=== PATIENT | female | born 1995 | race Caucasian/White ===

== ENCOUNTER 2016-07-25 09:27 | Emergency (ER) | payer OTHER ==
[2016-07-25] MEDS ORDERED: SODIUM CHLORIDE 0.9% 1,000 ML IV ONE (10:30)
[2016-07-25] MEDS ORDERED: ONDANSETRON 4 MG/2 ML VIAL IVP STA (10:30)
[2016-07-25] MEDS ORDERED: ACETAMINOPHEN TAB 325 MG TAB PO STA (10:31)
[2016-07-25 11:31] LABS: ALT 26 U/L (9-52); AST 15 U/L (14-36); Alkaline Phosphatase 89 U/L (38-126); Anion Gap 12 mmol/L; Basophils % (A) 0 %; Blood Urea Nitrogen 10 mg/dL (7-17); CH 25.9; CHCM 31.3; Calcium 10.4 mg/dL (8.4-10.2); Carbon Dioxide 25 mmol/L (22-30); Chloride 107 mmol/L (98-107); Eosinophils % (A) 0 %; Glucose 110 mg/dL (74-99); HCT 42.7 % (34.0-46.0); HDW 2.57; HGB 13.5 gm/dL (11.4-16.0); Hypochromasia Slight; Luc # (Auto) 0.07; Luc % (Auto) 1; Lymphocytes # (A) 1.1 k/uL (1.0-4.8); Lymphocytes % (A) 11 %; MCH 26.3 pg (25.0-35.0); MCHC 31.7 g/dL (31.0-37.0); MCV 82.9 fL (80.0-100.0); Mean Platelet Volume 7.3; Monocytes # (A) 0.4 k/uL (0-1.0); Monocytes % (A) 4 %; Neutrophils # (A) 8.3 k/uL (1.3-7.7); Neutrophils % (A) 84 %; Non-African American GFR(MDRD) >60 (>60 ml/min/1.73 sqM); Potassium 4.5 mmol/L (3.5-5.1); RBC 5.15 m/uL (3.80-5.40); RDW 13.9 % (11.5-15.5); Sodium 144 mmol/L (137-145); Total Bilirubin 0.5 mg/dL (0.2-1.3); Total Protein 7.7 g/dL (6.3-8.2); WBC 9.8 k/uL (4.0-11.0); WBC (Perox) 9.97
[2016-07-25] MEDS ORDERED: KETOROLAC 30 MG/ML 1 ML VIAL IVP STA (11:31)
[2016-07-25] MEDS ORDERED: MORPHINE SULFATE 4 MG/ML SYRINGE IVP STA (11:31)
[2016-07-25 11:41] LABS: Appearance,Urine Cloudy (Clear); Bacteria,Urine Rare /hpf; Bilirubin,Urine Negative (Negative); Calcium Oxalate Crystals,Urine Occasional /hpf; Glucose,Urine (UA) Negative (Negative); Ketones,Urine Trace (Negative); Leukocyte Esterase,Urine Trace (Negative); Mucus,Urine Many /hpf; Nitrite,Urine Negative (Negative); Particle Count 27566; Protein,Urine 1+ (Negative); Specific Gravity,Urine 1.034 (1.001-1.035); Squamous Epithelial Cell,Urine 34 /hpf (0-4); UA Billing (MACRO vs. MICRO) MICRO; WBC,Urine 9 /hpf (0-5)
--- NOTE | 2016-07-25 11:42 | ED ---
General Adult HPI - General Chief complaint: Abdominal Pain Stated complaint: ABD/BACK PAIN Source: patient Mode of arrival: ambulatory Limitations: no limitations - History of Present Illness Initial comments: 20-year-old female presenting for evaluation of diffuse abdominal pain. She states that it woke her up at 3:30 AM this morning and has associated nausea. She states her pain is achy and radiates throughout her entire abdomen with radiation into her back. 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 She denies any vomiting, dysuria, chest pain, dizziness/ lightheadedness, vaginal bleeding,headache, fever, chills. - Related Data Home Medications Medication Instructions Recorded Confirmed Calcium Carbonate [Tums] 500 mg PO DAILY PRN 07/25/16 07/25/16 Ibuprofen [Motrin] 600 mg PO Q6HR PRN 07/25/16 07/25/16 Previous Rx's Medication Instructions Recorded Moxifloxacin HCl 400 mg PO DAILY #14 tab 07/25/16 Allergies Allergy/AdvReac Type Severity Reaction Status Date / Time amoxicillin Allergy Unknown Verified 07/25/16 09:52 Review of Systems ROS Statement: Those systems with pertinent positive or pertinent negative responses have been documented in the HPI. ROS Other: All systems not noted in ROS Statement are negative. Constitutional: Denies: fever, chills, weakness, weight change Eyes: Denies: eye pain, eye discharge, vision change ENT: Denies: ear pain, throat pain, dental pain Respiratory: Denies: cough, dyspnea Cardiovascular: Denies: chest pain, palpitations Endocrine: Denies: fatigue, polydipsia, polyuria Gastrointestinal: Reports: abdominal pain, nausea. Denies: vomiting, diarrhea, constipation, hematemesis Genitourinary: Denies: urgency, dysuria, frequency, hematuria Musculoskeletal: Denies: back pain, arthralgia Skin: Denies: rash, lesions Neurological: Denies: headache, weakness Psychiatric: Denies: anxiety, depression Hematological/Lymphatic: Denies: easy bleeding, easy bruising Past Medical History Past Medical History: No Reported History History of Any Multi-Drug Resistant Organisms: None Reported Past Surgical History: No Surgical Hx Reported Past Psychological History: Depression Smoking Status: Current some day smoker Past Alcohol Use History: Occasional Past Drug Use History: None Reported General Exam Limitations: no limitations General appearance: alert, in no apparent distress Head exam: Present: atraumatic, normocephalic, normal inspection Eye exam: Present: normal appearance, PERRL, EOMI. Absent: scleral icterus, conjunctival injection, periorbital swelling ENT exam: Present: normal exam, mucous membranes moist Neck exam: Present: normal inspection. Absent: tenderness, meningismus, lymphadenopathy Respiratory exam: Present: normal lung sounds bilaterally. Absent: respiratory distress, wheezes, rales, rhonchi, stridor Cardiovascular Exam: Present: normal rhythm, bradycardia, normal heart sounds. Absent: systolic murmur, diastolic murmur, rubs, gallop, clicks GI/Abdominal exam: Present: soft, normal bowel sounds. Absent: distended, tenderness, guarding, rebound, rigid, diminished bowel sounds, hyperactive bowel sounds, hypoactive bowel sounds, mass Rectal exam: Present: deferred Extremities exam: Present: normal inspection, full ROM, normal capillary refill. Absent: tenderness, pedal edema, joint swelling, calf tenderness Back exam: Present: normal inspection Neurological exam: Present: alert, oriented X3, CN II-XII intact Psychiatric exam: Present: normal affect, normal mood Skin exam: Present: warm, dry, intact, normal color. Absent: rash Course Vital Signs 07/25/16 07/25/16 09:28 12:52 Temperature 97.5 F L 98.2 F Pulse Rate 52 L 60 Respiratory 17 16 Rate Blood Pressure 134/84 133/80 O2 Sat by Pulse 100 99 Oximetry Medical Decision Making - Medical Decision Making 20-year-old female presented for evaluation of diffuse abdominal pain that she states woke her up at 3:30 this morning there some associated nausea and she further states that there is a possibility that she could be . Upon entering the room the patient was laying on the bed with her hands behind her head relaxing stating that her pain was severe relenting. On physical examination her abdomen is soft without peritoneal signs of any guarding, rigidity, or rebound. There is no discoloration of the skin. Remainder of the physical examination is benign. Given concern for possible we'll obtain labs including a urine with qualitative test. We'll also provide IV fluids, Zofran, and pain control. Labs significant for a mild hypercalcemia which the patient was informed of and that she should follow up with her primary care physician concerning. Urine was contaminated with many squamous epithelial cells. She was reevaluated and had improvement in her symptoms. Due to the vaginal discharge she was offered a pelvic exam with gonorrhea and chlamydia cultures as well as wet mount. The patient stated she has never had a pelvic exam before and does not want one at this time. She was informed of the reasons for obtaining it and the possible complications including but not limited to pelvic inflammatory disease. She further stated that she would rather follow up as an outpatient. Given her vaginal discharge and refusal to obtain a pelvic exam will treat prophylactically for PID. She has an ALLERGY to amoxicillin and instead of providing Rocephin and azithromycin will prescribe moxifloxacin. The patient was discharged with instructions to follow-up with her primary care physician and given referral for Dr. Hayward. It was stressed that she must follow-up with either her primary care physician or Dr. Hayward within the next 24-48 hours for reevaluation and possible pelvic exam. She was further advised to return to this facility if her symptoms should worsen or persist. She acknowledged an understanding of this information and agreed with this plan of care. - Lab Data Result diagrams: 07/25/16 11:05 07/25/16 11:05 Lab Results 07/25/16 07/25/16 07/25/16 Range/Units 10:10 10:10 11:05 WBC 9.8 (4.0-11.0) k/uL RBC 5.15 (3.80-5.40) m/uL Hgb 13.5 (11.4-16.0) gm/dL Hct 42.7 (34.0-46.0) % MCV 82.9 (80.0-100.0) fL MCH 26.3 (25.0-35.0) pg MCHC 31.7 (31.0-37.0) g/dL RDW 13.9 (11.5-15.5) % Plt Count 277 (150-450) k/uL Neutrophils % 84 % Lymphocytes % 11 % Monocytes % 4 % Eosinophils % 0 % Basophils % 0 % Neutrophils # 8.3 H (1.3-7.7) k/uL Lymphocytes # 1.1 (1.0-4.8) k/uL Monocytes # 0.4 (0-1.0) k/uL Eosinophils # 0.0 (0-0.7) k/uL Basophils # 0.0 (0-0.2) k/uL Hypochromasia Slight Sodium (137-145) mmol/L Potassium (3.5-5.1) mmol/L Chloride (98-107) mmol/L Carbon Dioxide (22-30) mmol/L Anion Gap mmol/L BUN (7-17) mg/dL Creatinine (0.52-1.04) mg/dL Est GFR (MDRD) Af Amer (>60 ml/min/1.73 sqM) Est GFR (MDRD) Non-Af (>60 ml/min/1.73 sqM) Glucose (74-99) mg/dL Calcium (8.4-10.2) mg/dL Total Bilirubin (0.2-1.3) mg/dL AST (14-36) U/L ALT (9-52) U/L Alkaline Phosphatase (38-126) U/L Total Protein (6.3-8.2) g/dL Albumin (3.5-5.0) g/dL Lipase (23-300) U/L Urine Color Yellow Urine Appearance Cloudy H (Clear) Urine pH 6.0 (5.0-8.0) Ur Specific [place] 1.034 (1.001-1.035) Urine Protein 1+ H (Negative) Urine Glucose (UA) Negative (Negative) Urine Ketones Trace H (Negative) Urine Blood Negative (Negative) Urine Nitrite Negative (Negative) Urine Bilirubin Negative (Negative) Urine Urobilinogen 3.0 (<2.0) mg/dL Ur Leukocyte Esterase Trace H (Negative) Urine WBC 9 H (0-5) /hpf Ur Squamous Epith Cells 34 H (0-4) /hpf Calcium Oxalate Crystal Occasional H (None) /hpf Urine Bacteria Rare H (None) /hpf Urine Mucus Many H (None) /hpf Urine HCG, Qual Not Detected (Not Detectd) 07/25/16 Range/Units 11:05 WBC (4.0-11.0) k/uL RBC (3.80-5.40) m/uL Hgb (11.4-16.0) gm/dL Hct (34.0-46.0) % MCV (80.0-100.0) fL MCH (25.0-35.0) pg MCHC (31.0-37.0) g/dL RDW (11.5-15.5) % Plt Count (150-450) k/uL Neutrophils % % Lymphocytes % % Monocytes % % Eosinophils % % Basophils % % Neutrophils # (1.3-7.7) k/uL Lymphocytes # (1.0-4.8) k/uL Monocytes # (0-1.0) k/uL Eosinophils # (0-0.7) k/uL Basophils # (0-0.2) k/uL Hypochromasia Sodium 144 (137-145) mmol/L Potassium 4.5 (3.5-5.1) mmol/L Chloride 107 (98-107) mmol/L Carbon Dioxide 25 (22-30) mmol/L Anion Gap 12 mmol/L BUN 10 (7-17) mg/dL Creatinine 0.70 (0.52-1.04) mg/dL Est GFR (MDRD) Af Amer >60 (>60 ml/min/1.73 sqM) Est GFR (MDRD) Non-Af >60 (>60 ml/min/1.73 sqM) Glucose 110 H (74-99) mg/dL Calcium 10.4 H (8.4-10.2) mg/dL Total Bilirubin 0.5 (0.2-1.3) mg/dL AST 15 (14-36) U/L ALT 26 (9-52) U/L Alkaline Phosphatase 89 (38-126) U/L Total Protein 7.7 (6.3-8.2) g/dL Albumin 4.7 (3.5-5.0) g/dL Lipase 36 (23-300) U/L Urine Color Urine Appearance (Clear) Urine pH (5.0-8.0) Ur Specific [place] (1.001-1.035) Urine Protein (Negative) Urine Glucose (UA) (Negative) Urine Ketones (Negative) Urine Blood (Negative) Urine Nitrite (Negative) Urine Bilirubin (Negative) Urine Urobilinogen (<2.0) mg/dL Ur Leukocyte Esterase (Negative) Urine WBC (0-5) /hpf Ur Squamous Epith Cells (0-4) /hpf Calcium Oxalate Crystal (None) /hpf Urine Bacteria (None) /hpf Urine Mucus (None) /hpf Urine HCG, Qual (Not Detectd) Disposition Clinical Impression: Abdominal pain, Nausea Disposition: HOME SELF-CARE Condition: Stable Instructions: Abdominal Pain (ED), Hypercalcemia (ED), Pelvic Inflammatory Disease (ED) Additional Instructions: Please use medication as discussed. Please follow up with family doctor if symptoms have not improved over the next two days. Please return to the emergency room if your symptoms increase or worsen or for any other concerns. Prescriptions: Moxifloxacin HCl 400 mg PO DAILY #14 tab Referrals: Carmelita Dinh MD [Primary Care Provider] - 1-2 days Candice Hayward DO [Doctor of Osteopathic Medicine] - 1-2 days Time of Disposition: 12:08
[2016-07-25 12:53] VITALS: BP 133/80; PULSE 60; RESP 16; TEMP 98.2
== END 2016-07-25 12:50 | disposition home or self-care (01) ==
LOC: EC 09:27
DX: R10.84 Generalized abdominal pain (principal); R11.0 Nausea; F17.200 Nicotine dependence, unspecified, uncomplicated; Z88.0 Allergy status to penicillin
CPT/HCPCS: 99284; 96374; 96375 ×2; 96361 ×2; 36415; 80053; 83690; 85025; 81001; 81025; J2270; J2405; J1885

== ENCOUNTER → 2017-02-13 | Outpatient (CLI) | payer OTHER ==
--- NOTE | 2017-02-13 17:33 | US ---
EXAMINATION TYPE: US OB >= 14 wk fetus DATE OF EXAM: 02/13/2017 COMPARISON: None CLINICAL HISTORY: Z34.01 Encounter of supervision of first TECHNIQUE: OBTA GESTATIONAL AGE / DATING Physician Established: (14 weeks/6 days) EDC: 08/08/2017 Dates by LMP: LMP unknown Dates by First Scan: No previous this is first scan Dates by Current Scan: (14 weeks/6 days) EDC: 08/08/2017 Beta HCG (if available): not available SURVEY IUP: Single PLACENTA: Anterior PREVIA: No Previa YUNG: 14.7 cm Normal CERVICAL LENGTH (transabdominal: norm > 3.0cm): 3.1 cm BIOMETRY PRESENTATION: Variable LIE: Longitudinal BPD: 2.8 cm 14 weeks / 6 days HC: 10.7 cm 15 weeks / 1 days AC: 9.6 cm 15 weeks / 5 days FL: 1.4 cm 14 weeks / 1 days ESTIMATED WEIGHT IN GRAMS: 110 grams ESTIMATED WEIGHT IN LBS/OZ: 0 lbs. 4 oz. WEIGHT PERCENTAGE BASED ON ESTABLISHED DATES: 43% HC/AC: 1.1 Normal FL/AC: 14.7 Normal HEART RATE: 171 bpm RHYTHM: Normal IMPRESSION: The ultrasound gestational age is 14 weeks 6 days. The JEREMY is 08/08/2017. I see no complicating proces s.
== END | disposition home or self-care (01) ==
LOC: RADUSWWP 16:32
PROVIDERS: ATTEND Obstetrics & Gynecology
DX: Z34.01 Encounter for supervision of normal first pregnancy, first trimester (principal); Z3A.14 14 weeks gestation of pregnancy
CPT/HCPCS: 76805

== ENCOUNTER 2017-05-29 15:31 | Emergency (ER) | payer OTHER ==
[2017-05-29 15:34] VITALS: BP 139/86; PULSE 97; RESP 18; TEMP 98.1
--- NOTE | 2017-05-29 16:11 | ED ---
General Adult HPI - General Chief complaint: Extremity Problem,Nontraumatic Stated complaint: hip pain Time Seen by Provider: 05/29/17 15:57 Source: patient, RN notes reviewed Mode of arrival: ambulatory Limitations: no limitations - History of Present Illness Initial comments: 21-year-old female presents emergency department with a chief complaint of right -sided sciatica type pain. She states . She states just Tylenol which did help. She was concerned it could be something more serious. She denies any abdominal pain any vaginal bleeding discharge this. She states that she has had no other symptoms with this. There is been no loss by bladder function any saddle anesthesia. She states that she complains since make the pain better.Patient denies any recent fever, chills, shortness of breath, chest pain , abdominal pain, nausea vomiting, numbness or tingling, dysuria or hematuria, constipation or diarrhea, headaches or visual changes, or any other current symptoms. - Related Data Home Medications Medication Instructions Recorded Confirmed Pnv,Calcium 72/Iron/Folic Acid 1 tab PO DAILY 02/24/17 03/26/17 [ Plus Tablet] Allergies Allergy/AdvReac Type Severity Reaction Status Date / Time amoxicillin Allergy Unknown Verified 05/29/17 15:33 Review of Systems ROS Statement: Those systems with pertinent positive or pertinent negative responses have been documented in the HPI. ROS Other: All systems not noted in ROS Statement are negative. Past Medical History Past Medical History: No Reported History History of Any Multi-Drug Resistant Organisms: None Reported Past Surgical History: No Surgical Hx Reported Past Psychological History: Depression Smoking Status: Former smoker Past Alcohol Use History: None Reported Past Drug Use History: None Reported General Exam Limitations: no limitations General appearance: alert, in no apparent distress ENT exam: Present: normal exam, mucous membranes moist Neck exam: Present: normal inspection. Absent: tenderness, meningismus, lymphadenopathy Respiratory exam: Present: normal lung sounds bilaterally Cardiovascular Exam: Present: regular rate, normal rhythm, normal heart sounds. Absent: systolic murmur, diastolic murmur, rubs, gallop, clicks Back exam: Present: normal inspection, full ROM, tenderness (SI joint). Absent : paraspinal tenderness, vertebral tenderness, rash noted Neurological exam: Present: alert, oriented X3 Psychiatric exam: Present: normal affect, normal mood Skin exam: Present: warm, dry, intact, normal color. Absent: rash Course Vital Signs 05/29/17 15:31 Temperature 98.1 F Pulse Rate 97 Respiratory 18 Rate Blood Pressure 139/86 O2 Sat by Pulse 100 Oximetry Medical Decision Making - Medical Decision Making 21-year-old female presents for right-sided appears to be a sciatica type pain. the risk of the medication use. We did discuss half-way. We did discuss supportive.. We discussed return parameters and follow-up and all questions. Patient stated that she understood and she is given this plan. She will be discharged. Disposition Clinical Impression: Right sided sciatica Disposition: HOME SELF-CARE Condition: Stable Instructions: Sciatica (ED) Additional Instructions: Please use medication as discussed. Please follow up with family doctor if symptoms have not improved over the next two days. Please return to the emergency room if your symptoms increase or worsen or for any other concerns. please follow up with your OB as discussed. Referrals: Carmelita Dinh MD [Primary Care Provider] - 1-2 days Time of Disposition: 16:10
== END 2017-05-29 16:15 | disposition home or self-care (01) ==
LOC: EC 15:31
DX: O99.89 Other specified diseases and conditions complicating pregnancy, childbirth and the puerperium (principal); M54.31 Sciatica, right side; Z3A.30 30 weeks gestation of pregnancy; Z87.891 Personal history of nicotine dependence; Z88.0 Allergy status to penicillin
CPT/HCPCS: 99284

== ENCOUNTER 2017-07-11 13:53 | Outpatient (CLI) | payer OTHER ==
[2017-07-11 14:55] VITALS: BP 131/84; PULSE 94; RESP 16; TEMP 97.8
--- NOTE | 2017-07-13 08:18 | P.MSEPDOC ---
Presenting Problems - Arrival Data Date of Arrival on Unit: 07/11/17 Time of Arrival on Unit: 13:55 Mode of Transport: Ambulatory - Complaint OB-Reason for Admission/Chief Complaint: Other Comment: abd pain X2 days Medical History - Information : 1 Para: 0 Term: 0 : 0 Abortions: Spontaneous or Elective: 0 Number of Living Children: 0 - Gestational Age Gestational Age by JEREMY (wks/days): 36 Weeks and 0 Days Review of Systems - Review of Systems Constitutional: No problems Breast: No problems ENT: No problems Cardiovascular: No problems Respiratory: No problems Gastrointestinal: No problems Genitourinary: No problems Musculoskeletal: No problems Neurological: No problems Skin: No problems Vital Signs - Temperature Temperature: 97.8 F Temperature Source: Oral - Pulse Right Brachial Pulse Rate: 94 Pulse Assessment Method: Automatic Cuff - Respirations Respiratory Rate: 16 Oxygen Delivery Method: Room Air - Blood Pressure Right Arm Blood Pressure: 131/84 Blood Pressure Mean: 99 Blood Pressure Source: Automatic Cuff Medical Screen Scoring (Pre) - Cervical Exam Dilation: 1-3 cm = 1 Membranes: Intact - Uterine Contractions Frequency: > 5 minutes apart = 1 - Maternal Vital Signs Maternal Temperature: N/A Maternal Blood Pressure: N/A Signs of Preeclampsia: N/A Maternal Respirations: N/A - Pain Assessment Pain Location and Character: Right, Abdomen Pain Scale Used: Numeric (1 - 10) Pain Intensity: 4 Pain Description: *Acute Pain Frequency: Occasional Pain Duration: 2 Pain Duration Units: Days Pain Behavior: None Exhibited - Maternal Trauma Maternal Trauma: N/A - Assessment Baseline FHR: 145 Heart Rate - NICHD Category: Category I (Normal) = 0 - Total Score Total Score (Pre): 2 - Level of Risk Level of Risk: Low (0-5) Physician Notification (Pre) - Physician Notified Physician Notified Date: 07/11/17 Physician Notified Time: 14:32 Physician/Practitioner Notifed:: paul Spoke With: paul New Order Received: Yes - Notification Comment Comment: reported pt visit, abd pain, fht, contractions, vag exam, pt is pt of dr horner and has appointment tomorrow. would like pt orally hydrated, recheck cervix in one hour and discharge home if no change Disposition - Disposition OB Disposition: Discharge to home Discharge Date: 07/11/17 Discharge Time: 15:35 I agree with the RN Medical Screening Exam: Yes Risk & Benefit of care provided described in d/c instruction: Yes Diagnosis: FALSE LABOR BEFORE 37 COMPLETED WEEKS OF GEST, THIRD TRI
== END 2017-07-11 15:36 | disposition home or self-care (01) ==
LOC: FBPOP 13:53
PROVIDERS: ATTEND Obstetrics & Gynecology
DX: O47.03 False labor before 37 completed weeks of gestation, third trimester (principal); Z3A.36 36 weeks gestation of pregnancy
CPT/HCPCS: 59025; G0463; 99213

== ENCOUNTER → 2017-08-01 | Outpatient (CLI) | payer OTHER ==
--- NOTE | 2017-08-01 17:50 | US ---
EXAMINATION TYPE: US OB >= 14 wk fetus DATE OF EXAM: 08/01/2017 COMPARISON: Prior ultrasound February 24, 2017 and March 21, 2017 CLINICAL HISTORY: Z34.03 SUPERVISION OF FIRST NORMAL , growth TECHNIQUE: Transabdominal (TA) GESTATIONAL AGE / DATING Physician /Established: (39 weeks/0 days) EDC: 08/08/17 Dates by LMP: LMP unknown Dates by First Scan: (39 weeks/0 days) EDC: 08/08/2017 Dates by Current Scan: (38weeks/5 days) EDC: 08/10/2017 SURVEY IUP: Single PLACENTA: Anterior PREVIA: No Previa YUNG: 16.2 Normal CERVICAL LENGTH (transabdominal: norm > 3.0cm): 3.5m BIOMETRY PRESENTATION: Vertex LIE: Longitudinal BPD: 9.5m 38weeks / 5 days HC: 34.4 39weeks / 5 days AC: 36.1 40weeks / 1 days FL: 7.5m 38weeks / 3 days ESTIMATED WEIGHT IN GRAMS: 3808grams ESTIMATED WEIGHT IN LBS/OZ: 8 lbs. 6 oz. WEIGHT PERCENTAGE BASED ON ESTABLISHED DATES: 80 HC/AC: 0.9Normal FL/AC: 20.7 Normal HEART RATE: 158 bpm RHYTHM: Normal Single live intrauterine gestation is redemonstrated. Normal cephalad presentation to the fetus is se en currently. There is no ultrasound evidence for placenta previa. No suspicious cervical thinning is present. Calculated amniotic fluid index is within the normal range. biometry measurements are concordant and felt within normal limits. IMPRESSION: As above. Noted estimated weight 8 lbs. 6 oz. upper limits of normal based on estimated date of confinement.
== END | disposition home or self-care (01) ==
LOC: RADUSWWP 16:08
PROVIDERS: ATTEND Obstetrics & Gynecology
DX: Z34.03 Encounter for supervision of normal first pregnancy, third trimester (principal)
CPT/HCPCS: 76805

== ENCOUNTER 2019-03-16 01:01 | Emergency (ER) | payer OTHER ==
[2019-03-16 01:18] VITALS: TEMP 97.8
--- NOTE | 2019-03-16 01:40 | ED ---
Abdominal Pain HPI - General Chief Complaint: Abdominal Pain Stated Complaint: Abd Pain Time Seen by Provider: 03/16/19 01:14 Source: patient Mode of arrival: ambulatory Limitations: no limitations - History of Present Illness MD Complaint: abdominal pain Onset/Timin -: hour(s) Location: epigastric Radiation: none Migration to: no migration Severity: mild Quality: stabbing Consistency: colicky Improves With: nothing Worsens With: nothing Context: recent antibiotic use Associated Symptoms: diarrhea - Related Data LMP (females 10-50): 1 month Patient : No Home Medications Medication Instructions Recorded Confirmed Pnv,Calcium 72/Iron/Folic Acid 1 tab PO DAILY 02/24/17 03/26/17 [ Plus Tablet] Previous Rx's Medication Instructions Recorded Dicyclomine [Bentyl] 20 mg PO QID #15 tablet 03/16/19 Allergies Allergy/AdvReac Type Severity Reaction Status Date / Time amoxicillin Allergy Unknown Verified 05/29/17 15:33 Review of Systems ROS Statement: Those systems with pertinent positive or pertinent negative responses have been documented in the HPI. ROS Other: All systems not noted in ROS Statement are negative. Constitutional: Denies: fever, chills Respiratory: Denies: cough, dyspnea Cardiovascular: Denies: chest pain, palpitations, syncope Gastrointestinal: Reports: abdominal pain, diarrhea. Denies: nausea, vomiting, constipation, melena, hematochezia Genitourinary: Denies: dysuria, hematuria, abnormal menses Musculoskeletal: Denies: back pain Skin: Denies: rash Neurological: Denies: headache Past Medical History Past Medical History: No Reported History History of Any Multi-Drug Resistant Organisms: None Reported Past Surgical History: No Surgical Hx Reported Past Psychological History: Depression Smoking Status: Never smoker Past Drug Use History: Marijuana General Exam Limitations: no limitations General appearance: alert, in no apparent distress Head exam: Present: atraumatic, normocephalic Eye exam: Present: normal appearance. Absent: scleral icterus, conjunctival injection ENT exam: Present: normal oropharynx Neck exam: Present: normal inspection Respiratory exam: Present: normal lung sounds bilaterally. Absent: respiratory distress, wheezes, rales, rhonchi, stridor Cardiovascular Exam: Present: regular rate, normal rhythm, normal heart sounds. Absent: systolic murmur, diastolic murmur, rubs, gallop GI/Abdominal exam: Present: soft, normal bowel sounds. Absent: distended, tenderness, guarding, rebound, rigid, mass, pulsatile mass, hernia Extremities exam: Present: normal inspection, normal capillary refill Back exam: Present: normal inspection. Absent: CVA tenderness (R), CVA tenderness (L) Neurological exam: Present: alert Skin exam: Present: warm, dry, intact, normal color. Absent: rash Course Vital Signs 03/16/19 03/16/19 01:09 04:26 Temperature 97.8 F Pulse Rate 70 67 Respiratory 24 18 Rate Blood Pressure 130/101 141/92 O2 Sat by Pulse 98 98 Oximetry Medical Decision Making - Lab Data Result diagrams: 03/16/19 02:08 03/16/19 02:08 Lab Results 03/16/19 03/16/19 03/16/19 Range/Units 02:08 02:08 02:16 WBC 15.3 H (3.8-10.6) k/uL RBC 5.74 H (3.80-5.40) m/uL Hgb 13.2 (11.4-16.0) gm/dL Hct 42.7 (34.0-46.0) % MCV 74.3 L (80.0-100.0) fL MCH 23.0 L (25.0-35.0) pg MCHC 31.0 (31.0-37.0) g/dL RDW 15.4 (11.5-15.5) % Plt Count 297 (150-450) k/uL Neutrophils % 86 % Lymphocytes % 10 % Monocytes % 2 % Eosinophils % 1 % Basophils % 0 % Neutrophils # 13.1 H (1.3-7.7) k/uL Lymphocytes # 1.5 (1.0-4.8) k/uL Monocytes # 0.3 (0-1.0) k/uL Eosinophils # 0.1 (0-0.7) k/uL Basophils # 0.0 (0-0.2) k/uL Hypochromasia Moderate Microcytosis Slight Sodium 141 (137-145) mmol/L Potassium 4.9 (3.5-5.1) mmol/L Chloride 106 (98-107) mmol/L Carbon Dioxide 23 (22-30) mmol/L Anion Gap 12 mmol/L BUN 14 (7-17) mg/dL Creatinine 0.62 (0.52-1.04) mg/dL Est GFR (CKD-EPI)AfAm >90 (>60 ml/min/1.73 sqM) Est GFR (CKD-EPI)NonAf >90 (>60 ml/min/1.73 sqM) Glucose 117 H (74-99) mg/dL Calcium 10.6 H (8.4-10.2) mg/dL Total Bilirubin 0.5 (0.2-1.3) mg/dL AST 32 (14-36) U/L ALT 32 (9-52) U/L Alkaline Phosphatase 79 (38-126) U/L Total Protein 8.1 (6.3-8.2) g/dL Albumin 4.8 (3.5-5.0) g/dL Amylase 52 (30-110) U/L Lipase 31 (23-300) U/L Urine Color Light Yellow Urine Appearance Clear (Clear) Urine pH 8.0 (5.0-8.0) Ur Specific [place] 1.008 (1.001-1.035) Urine Protein Negative (Negative) Urine Glucose (UA) Negative (Negative) Urine Ketones Negative (Negative) Urine Blood Negative (Negative) Urine Nitrite Negative (Negative) Urine Bilirubin Negative (Negative) Urine Urobilinogen <2.0 (<2.0) mg/dL Ur Leukocyte Esterase Moderate H (Negative) Urine RBC 1 (0-5) /hpf Urine WBC 2 (0-5) /hpf Ur Squamous Epith Cells 7 H (0-4) /hpf Urine Mucus Rare H (None) /hpf Urine HCG, Qual (Not Detectd) C. difficile (EIA) Intrp (Negative) 03/16/19 03/16/19 Range/Units 02:16 04:20 WBC (3.8-10.6) k/uL RBC (3.80-5.40) m/uL Hgb (11.4-16.0) gm/dL Hct (34.0-46.0) % MCV (80.0-100.0) fL MCH (25.0-35.0) pg MCHC (31.0-37.0) g/dL RDW (11.5-15.5) % Plt Count (150-450) k/uL Neutrophils % % Lymphocytes % % Monocytes % % Eosinophils % % Basophils % % Neutrophils # (1.3-7.7) k/uL Lymphocytes # (1.0-4.8) k/uL Monocytes # (0-1.0) k/uL Eosinophils # (0-0.7) k/uL Basophils # (0-0.2) k/uL Hypochromasia Microcytosis Sodium (137-145) mmol/L Potassium (3.5-5.1) mmol/L Chloride (98-107) mmol/L Carbon Dioxide (22-30) mmol/L Anion Gap mmol/L BUN (7-17) mg/dL Creatinine (0.52-1.04) mg/dL Est GFR (CKD-EPI)AfAm (>60 ml/min/1.73 sqM) Est GFR (CKD-EPI)NonAf (>60 ml/min/1.73 sqM) Glucose (74-99) mg/dL Calcium (8.4-10.2) mg/dL Total Bilirubin (0.2-1.3) mg/dL AST (14-36) U/L ALT (9-52) U/L Alkaline Phosphatase (38-126) U/L Total Protein (6.3-8.2) g/dL Albumin (3.5-5.0) g/dL Amylase (30-110) U/L Lipase (23-300) U/L Urine Color Urine Appearance (Clear) Urine pH (5.0-8.0) Ur Specific [place] (1.001-1.035) Urine Protein (Negative) Urine Glucose (UA) (Negative) Urine Ketones (Negative) Urine Blood (Negative) Urine Nitrite (Negative) Urine Bilirubin (Negative) Urine Urobilinogen (<2.0) mg/dL Ur Leukocyte Esterase (Negative) Urine RBC (0-5) /hpf Urine WBC (0-5) /hpf Ur Squamous Epith Cells (0-4) /hpf Urine Mucus (None) /hpf Urine HCG, Qual Not Detected (Not Detectd) C. difficile (EIA) Intrp Negative (Negative) Disposition Clinical Impression: Diarrhea Disposition: HOME SELF-CARE Condition: Good Instructions (If sedation given, give patient instructions): Acute Diarrhea (ED) Prescriptions: Dicyclomine [Bentyl] 20 mg PO QID #15 tablet Is patient prescribed a controlled substance at d/c from ED?: No Referrals: Carmelita Dinh MD [Primary Care Provider] - 1-2 days
[2019-03-16 02:22] LABS: Basophils % (A) 0 %; Eosinophils # (A) 0.1 k/uL (0-0.7); Eosinophils % (A) 1 %; HCT 42.7 % (34.0-46.0); HGB 13.2 gm/dL (11.4-16.0); Hypochromasia Moderate; Lymphocytes # (A) 1.5 k/uL (1.0-4.8); Lymphocytes % (A) 10 %; MCV 74.3 fL (80.0-100.0); Microcytosis Slight; Monocytes # (A) 0.3 k/uL (0-1.0); Monocytes % (A) 2 %; Neutrophils # (A) 13.1 k/uL (1.3-7.7); Neutrophils % (A) 86 %; Platelet Count 297 k/uL (150-450); RBC 5.74 m/uL (3.80-5.40); RDW 15.4 % (11.5-15.5); WBC 15.3 k/uL (3.8-10.6)
[2019-03-16 02:33] LABS: African American GFR (CKD) >90 (>60 ml/min/1.73 sqM); Amylase 52 U/L (30-110); Anion Gap 12 mmol/L; Calcium 10.6 mg/dL (8.4-10.2); Carbon Dioxide 23 mmol/L (22-30); Chloride 106 mmol/L (98-107); Glucose 117 mg/dL (74-99); Non-African American GFR(CKD) >90 (>60 ml/min/1.73 sqM); Sodium 141 mmol/L (137-145); Total Bilirubin 0.5 mg/dL (0.2-1.3)
[2019-03-16 02:36] LABS: ALT 32 U/L (9-52); AST 32 U/L (14-36); Albumin 4.8 g/dL (3.5-5.0); Alkaline Phosphatase 79 U/L (38-126); Blood Urea Nitrogen 14 mg/dL (7-17); Potassium 4.9 mmol/L (3.5-5.1); Total Protein 8.1 g/dL (6.3-8.2)
[2019-03-16 02:37] LABS: Appearance,Urine Clear (Clear); Bilirubin,Urine Negative (Negative); Blood,Urine Negative (Negative); Color,Urine Light Yellow; Glucose,Urine (UA) Negative (Negative); Ketones,Urine Negative (Negative); Leukocyte Esterase,Urine Moderate (Negative); Mucus,Urine Rare /hpf; Nitrite,Urine Negative (Negative); Protein,Urine Negative (Negative); RBC,Urine 1 /hpf (0-5); Specific Gravity,Urine 1.008 (1.001-1.035); Squamous Epithelial Cell,Urine 7 /hpf (0-4); Urobilinogen,Urine <2.0 mg/dL (<2.0); WBC,Urine 2 /hpf (0-5)
--- NOTE | 2019-03-16 03:07 | XR ---
EXAMINATION TYPE: XR KUB DATE OF EXAM: 03/16/2019 COMPARISON: NONE HISTORY: Abdominal pain TECHNIQUE: 2 views FINDINGS: Bowel gas pattern is normal. There is no sign of intestinal obstruction or pneumoperitoneum . Fecal pattern is normal. There is no sign of a mass. IMPRESSION: Nonacute abdomen.
[2019-03-16 04:27] VITALS: RESP 18
[2019-03-16] MEDS ORDERED: DICYCLOMINE 20 MG TAB PO STA (04:54)
[2019-03-16] MEDS ORDERED: MAG HYDROX/AL HYDROX/SIMETH 30 ML, HYOSCYAMINE ELIXIR 10 ML, LIDOCAINE VISCOUS 2% 10 ML PO STA ×3 (05:56)
[2019-03-16 07:14] VITALS: BP 139/89; PULSE 60
== END 2019-03-16 07:14 | disposition home or self-care (01) ==
LOC: EC 01:01
DX: R19.7 Diarrhea, unspecified (principal); R10.13 Epigastric pain; Z32.02 Encounter for pregnancy test, result negative; Z88.0 Allergy status to penicillin
CPT/HCPCS: 36415; 74018; 80053; 81001; 81025; 82150; 83690; 85025; 87324; 99284

== ENCOUNTER 2019-03-17 17:15 | Observation (INO) | payer OTHER ==
[2019-03-17] MEDS ORDERED: MORPHINE SULFATE 4 MG/ML SYRINGE IV STA (18:03)
[2019-03-17] MEDS ORDERED: SODIUM CHLORIDE 0.9% 1,000 ML IV STA (18:03)
[2019-03-17] MEDS ORDERED: KETOROLAC 30 MG/ML 1 ML VIAL IVP STA (18:03)
[2019-03-17] MEDS: ONDANSETRON 4 MG/2 ML VIAL IVP STA (18:54)
--- NOTE | 2019-03-17 19:07 | ED ---
Abdominal Pain HPI - General Source: patient, RN notes reviewed, old records reviewed Mode of arrival: ambulatory Limitations: no limitations <Luna Gregorio - Last Filed: 03/17/19 21:01> <Melissa Vera - Last Filed: 03/22/19 14:39> - General Chief Complaint: Abdominal Pain Stated Complaint: abd/back pain Time Seen by Provider: 03/17/19 17:56 - History of Present Illness Initial Comments: 23-year-old female presents today for evaluation for diffuse abdominal pain, fevers of the diarrhea, subjective fevers and chills and pain for the past 2 days. Reports the abdominal pain is periumbilical and radiate towards the right side. Patient states that she was seen in emergency department 2 days ago, and was sent home with Bentyl but reports no relief of her symptoms. She denies any of the symptoms including dysuria. He reports that she is on her menstrual cycle. Patient reports the pain radiates towards her back. (Luna Gregorio) - Related Data Home Medications Medication Instructions Recorded Confirmed Ibuprofen 400 mg PO Q6H PRN 03/17/19 03/17/19 Previous Rx's Medication Instructions Recorded Dicyclomine [Bentyl] 20 mg PO QID #15 tablet 03/16/19 Hydrocodone/Acetaminophen [[place] 1 tab PO Q6HR PRN 3 Days #12 tab 03/18/19 5-325] Allergies Allergy/AdvReac Type Severity Reaction Status Date / Time amoxicillin Allergy Intermediate Rash/Hives Verified 03/17/19 22:59 Review of Systems ROS Other: All systems not noted in ROS Statement are negative. <Luna Gregorio - Last Filed: 03/17/19 21:01> ROS Other: All systems not noted in ROS Statement are negative. <Melissa Vera - Last Filed: 03/22/19 14:39> ROS Statement: Those systems with pertinent positive or pertinent negative responses have been documented in the HPI. Past Medical History Past Medical History: No Reported History History of Any Multi-Drug Resistant Organisms: None Reported Past Surgical History: No Surgical Hx Reported Past Psychological History: Depression Smoking Status: Never smoker Past Drug Use History: Marijuana <Luna Gregorio - Last Filed: 03/17/19 21:01> General Exam Limitations: no limitations General appearance: alert, in no apparent distress Head exam: Present: atraumatic, normocephalic, normal inspection Eye exam: Present: normal appearance, PERRL, EOMI. Absent: scleral icterus, conjunctival injection, periorbital swelling ENT exam: Present: normal exam, mucous membranes moist Neck exam: Present: normal inspection. Absent: tenderness, meningismus, lymphadenopathy Respiratory exam: Present: normal lung sounds bilaterally. Absent: respiratory distress, wheezes, rales, rhonchi, stridor Cardiovascular Exam: Present: regular rate, normal rhythm, normal heart sounds. Absent: systolic murmur, diastolic murmur, rubs, gallop, clicks GI/Abdominal exam: Present: soft, tenderness (diffuse, worse right side), normal bowel sounds. Absent: distended, guarding, rebound, rigid Extremities exam: Present: normal inspection, full ROM, normal capillary refill. Absent: tenderness, pedal edema, joint swelling, calf tenderness Back exam: Present: normal inspection Neurological exam: Present: alert, oriented X3, CN II-XII intact <Luna Gregorio - Last Filed: 03/17/19 21:01> - General Exam Comments Initial Comments: 9-year-old female. Alert and oriented. Anxious. Moderate discomfort. (Luna Gregorio) Course Vital Signs 03/17/19 03/17/19 17:33 21:25 Temperature 98.2 F 97.8 F Pulse Rate 77 68 Respiratory 18 16 Rate Blood Pressure 138/95 141/97 O2 Sat by Pulse 98 98 Oximetry Medical Decision Making - Lab Data Result diagrams: 03/17/19 18:43 03/17/19 18:43 - Radiology Data Radiology results: report reviewed <Luna Gregorio - Last Filed: 03/17/19 21:01> - Lab Data Result diagrams: 03/19/19 06:54 03/18/19 22:44 <Melissa Vera - Last Filed: 03/22/19 14:39> - Medical Decision Making 23-year-old female presents today for abdominal pain for the past 3 days, complaining of some diarrhea, she reports it radiates towards the right side. She initially had some mid periumbilical tenderness and radiation towards the mid right abdomen. Lab work was reviewed. She does have elevated transaminases compared to yesterday. Does have evidence of leukocytosis. Blood cultures were completed. She has a lot of blood in her urine but she started her menstrual cycle today. CT abdomen and pelvis was performed. There is concern for dilated appendix. Suspicious for appendicitis. I discussed case with Dr. Vera who discussed case with Dr. Linder. Patient will be admitted and started on IV antibiotics. Remaining nothing by mouth at midnight. Given Rocephin and Flagyl this time. We will also order a gallbladder ultrasound due to the elevated transaminases today. (Luna Gregorio) I was available for consultation in the emergency department. The history and physical exam were done by the midlevel provider. I was consulted for this patients care. I reviewed the case with the midlevel provider and based on the ir presentation of the patient, I agree with the assessment, medical decision making and plan of care as documented. I evaluated the patient myself who agreed with the treatment plan. Chart was dictated using [employer] dictation software. Attempts were made to correct any dictation errors however some typographical errors may persist. (Melissa Vera) - Lab Data Lab Results 03/17/19 03/17/19 03/17/19 Range/Units 18:43 18:43 18:43 WBC 14.5 H (3.8-10.6) k/uL RBC 5.20 (3.80-5.40) m/uL Hgb 12.4 (11.4-16.0) gm/dL Hct 38.9 (34.0-46.0) % MCV 74.9 L (80.0-100.0) fL MCH 23.8 L (25.0-35.0) pg MCHC 31.7 (31.0-37.0) g/dL RDW 15.5 (11.5-15.5) % Plt Count 266 (150-450) k/uL Neutrophils % 82 % Lymphocytes % 11 % Monocytes % 4 % Eosinophils % 1 % Basophils % 0 % Neutrophils # 11.9 H (1.3-7.7) k/uL Lymphocytes # 1.6 (1.0-4.8) k/uL Monocytes # 0.6 (0-1.0) k/uL Eosinophils # 0.1 (0-0.7) k/uL Basophils # 0.0 (0-0.2) k/uL Hypochromasia Marked Microcytosis Slight APTT 24.8 (22.0-30.0) sec Sodium 142 (137-145) mmol/L Potassium 3.7 (3.5-5.1) mmol/L Chloride 103 (98-107) mmol/L Carbon Dioxide 27 (22-30) mmol/L Anion Gap 12 mmol/L BUN 17 (7-17) mg/dL Creatinine 0.78 (0.52-1.04) mg/dL Est GFR (CKD-EPI)AfAm >90 (>60 ml/min/1.73 sqM) Est GFR (CKD-EPI)NonAf >90 (>60 ml/min/1.73 sqM) Glucose 106 H (74-99) mg/dL Calcium 9.8 (8.4-10.2) mg/dL Total Bilirubin 0.4 (0.2-1.3) mg/dL AST 98 H (14-36) U/L ALT 107 H (9-52) U/L Alkaline Phosphatase 98 (38-126) U/L Total Protein 7.8 (6.3-8.2) g/dL Albumin 4.7 (3.5-5.0) g/dL Amylase 47 (30-110) U/L Lipase 59 (23-300) U/L Urine Color Urine Appearance (Clear) Urine pH (5.0-8.0) Ur Specific [place] (1.001-1.035) Urine Protein (Negative) Urine Glucose (UA) (Negative) Urine Ketones (Negative) Urine Blood (Negative) Urine Nitrite (Negative) Urine Bilirubin (Negative) Urine Urobilinogen (<2.0) mg/dL Ur Leukocyte Esterase (Negative) Urine RBC (0-5) /hpf Urine WBC (0-5) /hpf Ur Squamous Epith Cells (0-4) /hpf Urine Mucus (None) /hpf Urine HCG, Qual (Not Detectd) 03/17/19 03/17/19 Range/Units 19:45 19:45 WBC (3.8-10.6) k/uL RBC (3.80-5.40) m/uL Hgb (11.4-16.0) gm/dL Hct (34.0-46.0) % MCV (80.0-100.0) fL MCH (25.0-35.0) pg MCHC (31.0-37.0) g/dL RDW (11.5-15.5) % Plt Count (150-450) k/uL Neutrophils % % Lymphocytes % % Monocytes % % Eosinophils % % Basophils % % Neutrophils # (1.3-7.7) k/uL Lymphocytes # (1.0-4.8) k/uL Monocytes # (0-1.0) k/uL Eosinophils # (0-0.7) k/uL Basophils # (0-0.2) k/uL Hypochromasia Microcytosis APTT (22.0-30.0) sec Sodium (137-145) mmol/L Potassium (3.5-5.1) mmol/L Chloride (98-107) mmol/L Carbon Dioxide (22-30) mmol/L Anion Gap mmol/L BUN (7-17) mg/dL Creatinine (0.52-1.04) mg/dL Est GFR (CKD-EPI)AfAm (>60 ml/min/1.73 sqM) Est GFR (CKD-EPI)NonAf (>60 ml/min/1.73 sqM) Glucose (74-99) mg/dL Calcium (8.4-10.2) mg/dL Total Bilirubin (0.2-1.3) mg/dL AST (14-36) U/L ALT (9-52) U/L Alkaline Phosphatase (38-126) U/L Total Protein (6.3-8.2) g/dL Albumin (3.5-5.0) g/dL Amylase (30-110) U/L Lipase (23-300) U/L Urine Color Yellow Urine Appearance Clear (Clear) Urine pH 6.0 (5.0-8.0) Ur Specific [place] 1.035 (1.001-1.035) Urine Protein 1+ H (Negative) Urine Glucose (UA) Negative (Negative) Urine Ketones 1+ H (Negative) Urine Blood Moderate H (Negative) Urine Nitrite Negative (Negative) Urine Bilirubin Negative (Negative) Urine Urobilinogen 2.0 (<2.0) mg/dL Ur Leukocyte Esterase Negative (Negative) Urine RBC >182 H (0-5) /hpf Urine WBC 1 (0-5) /hpf Ur Squamous Epith Cells 1 (0-4) /hpf Urine Mucus Few H (None) /hpf Urine HCG, Qual Not Detected (Not Detectd) - Radiology Data Appendix is thickened. No surrounding inflammation. This is nevertheless suspicious for appendicitis. Read by Dr. Martínez. (Luna Gregorio) Disposition Is patient prescribed a controlled substance at d/c from ED?: No Time of Disposition: 21:10 <Luna Gregorio - Last Filed: 03/17/19 21:01> <Melissa Vera - Last Filed: 03/22/19 14:39> Clinical Impression: Appendicitis, Elevated transaminase level Disposition: ADMITTED IP TO THIS HOSP Condition: Stable
[2019-03-17 19:17] LABS: Basophils % (A) 0 %; Eosinophils # (A) 0.1 k/uL (0-0.7); Eosinophils % (A) 1 %; HCT 38.9 % (34.0-46.0); HGB 12.4 gm/dL (11.4-16.0); Hypochromasia Marked; Lymphocytes # (A) 1.6 k/uL (1.0-4.8); Lymphocytes % (A) 11 %; MCH 23.8 pg (25.0-35.0); MCHC 31.7 g/dL (31.0-37.0); MCV 74.9 fL (80.0-100.0); Mean Platelet Volume 6.8; Microcytosis Slight; Monocytes # (A) 0.6 k/uL (0-1.0); Monocytes % (A) 4 %; Neutrophils # (A) 11.9 k/uL (1.3-7.7); Neutrophils % (A) 82 %; Platelet Count 266 k/uL (150-450); RDW 15.5 % (11.5-15.5); WBC 14.5 k/uL (3.8-10.6)
[2019-03-17 19:27] LABS: ALT 107 U/L (9-52); AST 98 U/L (14-36); African American GFR (CKD) >90 (>60 ml/min/1.73 sqM); Albumin 4.7 g/dL (3.5-5.0); Alkaline Phosphatase 98 U/L (38-126); Amylase 47 U/L (30-110); Anion Gap 12 mmol/L; Blood Urea Nitrogen 17 mg/dL (7-17); Calcium 9.8 mg/dL (8.4-10.2); Carbon Dioxide 27 mmol/L (22-30); Chloride 103 mmol/L (98-107); Glucose 106 mg/dL (74-99); Non-African American GFR(CKD) >90 (>60 ml/min/1.73 sqM); Potassium 3.7 mmol/L (3.5-5.1); Sodium 142 mmol/L (137-145); Total Bilirubin 0.4 mg/dL (0.2-1.3); Total Protein 7.8 g/dL (6.3-8.2)
[2019-03-17 20:02] LABS: Appearance,Urine Clear (Clear); Bilirubin,Urine Negative (Negative); Blood,Urine Moderate (Negative); Color,Urine Yellow; Glucose,Urine (UA) Negative (Negative); Ketones,Urine 1+ (Negative); Leukocyte Esterase,Urine Negative (Negative); Mucus,Urine Few /hpf; Nitrite,Urine Negative (Negative); Protein,Urine 1+ (Negative); RBC,Urine >182 /hpf (0-5); Specific Gravity,Urine 1.035 (1.001-1.035); Squamous Epithelial Cell,Urine 1 /hpf (0-4); WBC,Urine 1 /hpf (0-5)
--- NOTE | 2019-03-17 20:44 | CT ---
EXAMINATION TYPE: CT abdomen pelvis w con DATE OF EXAM: 03/17/2019 COMPARISON: None HISTORY: right pelvic pain CT DLP: 1229.3 mGycm Automated exposure control for dose reduction was used. TECHNIQUE: Helical acquisition of images was performed from the lung bases through the pelvis. CONTRAST: Performed without Oral Contrast and with IV Contrast, patient injected with 100 mL of Isovue 300. FINDINGS: Lung bases are clear. There is no pleural effusion. Stomach is intact. Liver spleen pancreas gallblad joey appear normal. Bile ducts are not dilated. There is no adrenal mass. Kidneys show satisfactory co ntrast opacification. There is no hydronephrosis. Ureters are not dilated. There is no retroperitonea l adenopathy. Bladder is empty. Uterus is anteverted. There is no free fluid in the pelvis. There is no mesenteric edema. There is no ascites or free air. There is no sign of a bowel obstruction. The ap pendix is thickened and measures 10 mm. There is no surrounding inflammation seen however. The lumbar vertebra have normal spacing and alignment. Posterior elements are intact. Bony pelvis is intact. IMPRESSION: THE APPENDIX IS THICKENED. NO SURROUNDING INFLAMMATION. THIS IS NEVERTHELESS SUSPICIOUS FOR APPENDICI TIS..
[2019-03-17] MEDS ORDERED: PIPERACILLIN-TAZOBACTAM 3.375 GM in SODIUM CHLORIDE 0.9% 100 ML IVPB STA (21:00)
[2019-03-17] MEDS ORDERED: metroNIDAZOLE-NS PMX 500 MG in SALINE 1 100ML.BAG IVPB STA (21:04)
[2019-03-17] MEDS ORDERED: cefTRIAXone IN SWFI 1,000 MG/10 ML SYRINGE IVP STA (21:04)
[2019-03-17] MEDS ORDERED: ONDANSETRON 4 MG/2 ML VIAL IVP PRN (21:11)
[2019-03-17] MEDS ORDERED: NALOXONE 0.4 MG/ML 1 ML VIAL IV PRN (21:11)
[2019-03-17] MEDS ORDERED: KETOROLAC 30 MG/ML 1 ML VIAL IVP PRN (21:11)
[2019-03-17] MEDS ORDERED: ACETAMINOPHEN TAB 325 MG TAB PO PRN (21:11)
[2019-03-17] MEDS ORDERED: MORPHINE SULFATE 4 MG/ML SYRINGE IV PRN (21:11)
[2019-03-17] MEDS ORDERED: IBUPROFEN 400 MG TAB PO PRN (21:11)
[2019-03-17] MEDS ORDERED: cefTRIAXone IN SWFI 1,000 MG/10 ML SYRINGE IVP SCH (21:15)
[2019-03-17] MEDS: SODIUM CHLORIDE 0.9% 1,000 ML IV SCH (21:19)
--- NOTE | 2019-03-17 22:21 | US ---
EXAMINATION TYPE: US gallbladder DATE OF EXAM: 03/17/2019 COMPARISON: CT CLINICAL HISTORY: elevated transaminase. Elevated transaminase. Epigastric pain x 3 days. EXAM MEASUREMENTS: Liver Length: 16.9 cm Gallbladder Wall: 0.27 cm CBD: 0.40 cm Right Kidney: 12.4 x 5.2 x 4.8 cm Limited due to gas. Pancreas: Limited, partially obscured by overlying bowel gas. Liver: Appears to be wnl Gallbladder: Minimal internal echoes seen vs. artifact. Evidence for sonographic Pearl's sign: no CBD: appears to be wnl Right Kidney: Appears to measure upper limits of normal vs. minimally enlarged. No hydronephrosis or masses seen IMPRESSION: No gallstones or dilated ducts. No free fluid.
[2019-03-18] MEDS ORDERED: PIPERACILLIN-TAZOBACTAM 3.375 GM in SODIUM CHLORIDE 0.9% 100 ML IVPB SCH ×2
[2019-03-18] MEDS: SODIUM CHLORIDE 0.9% 1,000 ML IV SCH ×2 (06:56→13:38)
[2019-03-18] MEDS: PANTOPRAZOLE 40 MG/10 ML VIAL IV SCH (07:59)
--- NOTE | 2019-03-18 08:41 | P.GSHP ---
<Michaela Valentin A - Last Filed: 03/18/19 08:40> History of Present Illness H&P Date: 03/18/19 Chief Complaint: abdominal pain CHIEF COMPLAINT: Abdominal pain HISTORY OF PRESENT ILLNESS: 23-year-old female who presented to the emergency room with a chief complaint of abdominal pain. Patient reports her pain was mostly near the umbilicus and radiated to her right side. She reports nausea and states she had multiple episodes of emesis yesterday. PAST MEDICAL HISTORY: See list. PAST SURGICAL HISTORY: See list. SOCIAL HISTORY: No illicit drug use. REVIEW OF SYSTEMS: CONSTITUTIONAL: Denies fever or chills. HEENT: Denies blurred vision, vision changes, or eye pain. Denies hemoptysis CARDIOVASCULAR: Denies chest pain or pressure. RESPIRATORY: No shortness of breath. GASTROINTESTINAL: Refer to HPI for pertinent findings HEMATOLOGIC: Denies bleeding disorders. GENITOURINARY: Denies any blood in urine. SKIN: Denies pruitis. Denies rash. PHYSICAL EXAM: VITAL SIGNS: Reviewed. GENERAL: Well-developed in no acute distress. HEENT: No sclera icterus. Extraocular movements grossly intact. Moist buccal mucosa. Head is atraumatic, normocephalic. ABDOMEN: Soft. Nondistended. Tenderness with palpation near umbilicus and right lower quadrant. NEUROLOGIC: Alert and oriented. Cranial nerves II through XII grossly intact. LABORATORY DATA: WBC 14.5. Hemoglobin 12.4. Platelet count 266. Total bilirubin 0.4. AST 98. ALT 107. IMAGING: CT abdomen and pelvis: Thickened appendix. Findings likely representing acute appendicitis. Abdominal ultrasound: no gallstones or dilated ducts. No free fluid. ASSESSMENT: 1. Abdominal pain 2. Acute appendicitis 3. Mildly elevated liver enzymes PLAN: 1. NPO. Continue IV fluids. 2. Monitor WBC. Continue antibiotics 3. Patient to undergo laparoscopic appendectomy today with Dr. Linder Nurse practitioner note has been reviewed by physician. Signing provider agrees with the documented findings, assessment, and plan of care. Past Medical History Past Medical History: No Reported History History of Any Multi-Drug Resistant Organisms: None Reported Past Surgical History: No Surgical Hx Reported Additional Past Surgical History / Comment(s): wisdom tooth removal Past Anesthesia/Blood Transfusion Reactions: No Reported Reaction Past Psychological History: ADD/ADHD, Bipolar, Depression Additional Psychological History / Comment(s): has not been treated for bipolar disorder Smoking Status: Never smoker Past Alcohol Use History: None Reported Past Drug Use History: Marijuana Additional Drug Use History / Comment(s): current everyday marijuana user - Past Family History Father Additional Family Medical History / Comment(s): choly Medications and Allergies Home Medications Medication Instructions Recorded Confirmed Type Dicyclomine [Bentyl] 20 mg PO QID #15 tablet 03/16/19 03/17/19 Rx Ibuprofen 400 mg PO Q6H PRN 03/17/19 03/17/19 History Allergies Allergy/AdvReac Type Severity Reaction Status Date / Time amoxicillin Allergy Intermediate Rash/Hives Verified 03/17/19 22:59 Surgical - Exam Vital Signs Temp Pulse Resp BP Pulse Ox 98.2 F 77 18 138/95 98 03/17/19 17:33 03/17/19 17:33 03/17/19 17:33 03/17/19 17:33 03/17/19 17:33 Results - Labs 03/17/19 18:43 03/17/19 18:43 Abnormal Lab Results - Last 24 Hours (Table) 03/17/19 03/17/19 03/17/19 Range/Units 18:43 18:43 19:45 WBC 14.5 H (3.8-10.6) k/uL MCV 74.9 L (80.0-100.0) fL MCH 23.8 L (25.0-35.0) pg Neutrophils # 11.9 H (1.3-7.7) k/uL Glucose 106 H (74-99) mg/dL AST 98 H (14-36) U/L ALT 107 H (9-52) U/L Urine Protein 1+ H (Negative) Urine Ketones 1+ H (Negative) Urine Blood Moderate H (Negative) Urine RBC >182 H (0-5) /hpf Urine Mucus Few H (None) /hpf Diabetes panel 03/17/19 Range/Units 18:43 Sodium 142 (137-145) mmol/L Potassium 3.7 (3.5-5.1) mmol/L Chloride 103 (98-107) mmol/L Carbon Dioxide 27 (22-30) mmol/L BUN 17 (7-17) mg/dL Creatinine 0.78 (0.52-1.04) mg/dL Glucose 106 H (74-99) mg/dL Calcium 9.8 (8.4-10.2) mg/dL AST 98 H (14-36) U/L ALT 107 H (9-52) U/L Alkaline Phosphatase 98 (38-126) U/L Total Protein 7.8 (6.3-8.2) g/dL Albumin 4.7 (3.5-5.0) g/dL Calcium panel 03/17/19 Range/Units 18:43 Calcium 9.8 (8.4-10.2) mg/dL Albumin 4.7 (3.5-5.0) g/dL Pituitary panel 03/17/19 Range/Units 18:43 Sodium 142 (137-145) mmol/L Potassium 3.7 (3.5-5.1) mmol/L Chloride 103 (98-107) mmol/L Carbon Dioxide 27 (22-30) mmol/L BUN 17 (7-17) mg/dL Creatinine 0.78 (0.52-1.04) mg/dL Glucose 106 H (74-99) mg/dL Calcium 9.8 (8.4-10.2) mg/dL Adrenal panel 03/17/19 Range/Units 18:43 Sodium 142 (137-145) mmol/L Potassium 3.7 (3.5-5.1) mmol/L Chloride 103 (98-107) mmol/L Carbon Dioxide 27 (22-30) mmol/L BUN 17 (7-17) mg/dL Creatinine 0.78 (0.52-1.04) mg/dL Glucose 106 H (74-99) mg/dL Calcium 9.8 (8.4-10.2) mg/dL Total Bilirubin 0.4 (0.2-1.3) mg/dL AST 98 H (14-36) U/L ALT 107 H (9-52) U/L Alkaline Phosphatase 98 (38-126) U/L Total Protein 7.8 (6.3-8.2) g/dL Albumin 4.7 (3.5-5.0) g/dL <Milton Linder - Last Filed: 03/18/19 11:01> Surgical - Exam Vital Signs Temp Pulse Resp BP Pulse Ox 98.2 F 77 18 138/95 98 03/17/19 17:33 03/17/19 17:33 03/17/19 17:33 03/17/19 17:33 03/17/19 17:33 Results - Labs 03/17/19 18:43 03/17/19 18:43 Abnormal Lab Results - Last 24 Hours (Table) 03/17/19 03/17/19 03/17/19 Range/Units 18:43 18:43 19:45 WBC 14.5 H (3.8-10.6) k/uL MCV 74.9 L (80.0-100.0) fL MCH 23.8 L (25.0-35.0) pg Neutrophils # 11.9 H (1.3-7.7) k/uL Glucose 106 H (74-99) mg/dL AST 98 H (14-36) U/L ALT 107 H (9-52) U/L Urine Protein 1+ H (Negative) Urine Ketones 1+ H (Negative) Urine Blood Moderate H (Negative) Urine RBC >182 H (0-5) /hpf Urine Mucus Few H (None) /hpf Diabetes panel 03/17/19 Range/Units 18:43 Sodium 142 (137-145) mmol/L Potassium 3.7 (3.5-5.1) mmol/L Chloride 103 (98-107) mmol/L Carbon Dioxide 27 (22-30) mmol/L BUN 17 (7-17) mg/dL Creatinine 0.78 (0.52-1.04) mg/dL Glucose 106 H (74-99) mg/dL Calcium 9.8 (8.4-10.2) mg/dL AST 98 H (14-36) U/L ALT 107 H (9-52) U/L Alkaline Phosphatase 98 (38-126) U/L Total Protein 7.8 (6.3-8.2) g/dL Albumin 4.7 (3.5-5.0) g/dL Calcium panel 03/17/19 Range/Units 18:43 Calcium 9.8 (8.4-10.2) mg/dL Albumin 4.7 (3.5-5.0) g/dL Pituitary panel 03/17/19 Range/Units 18:43 Sodium 142 (137-145) mmol/L Potassium 3.7 (3.5-5.1) mmol/L Chloride 103 (98-107) mmol/L Carbon Dioxide 27 (22-30) mmol/L BUN 17 (7-17) mg/dL Creatinine 0.78 (0.52-1.04) mg/dL Glucose 106 H (74-99) mg/dL Calcium 9.8 (8.4-10.2) mg/dL Adrenal panel 03/17/19 Range/Units 18:43 Sodium 142 (137-145) mmol/L Potassium 3.7 (3.5-5.1) mmol/L Chloride 103 (98-107) mmol/L Carbon Dioxide 27 (22-30) mmol/L BUN 17 (7-17) mg/dL Creatinine 0.78 (0.52-1.04) mg/dL Glucose 106 H (74-99) mg/dL Calcium 9.8 (8.4-10.2) mg/dL Total Bilirubin 0.4 (0.2-1.3) mg/dL AST 98 H (14-36) U/L ALT 107 H (9-52) U/L Alkaline Phosphatase 98 (38-126) U/L Total Protein 7.8 (6.3-8.2) g/dL Albumin 4.7 (3.5-5.0) g/dL Assessment and Plan Plan: Patient undergo laparoscopic appendectomy today.
[2019-03-18] MEDS: metroNIDAZOLE-NS PMX 500 MG in SALINE 1 100ML.BAG IVPB SCH ×2 (08:51→17:21)
[2019-03-18] MEDS ORDERED: IV FLUID CONTINUATION 1,000 ML IV ONE (11:26)
[2019-03-18] MEDS ORDERED: DEXAMETHASONE SOD PHOSPHATE 10 MG/ML 1 ML VIAL IV ONE (12:03)
[2019-03-18] MEDS: ONDANSETRON 4 MG/2 ML VIAL IVP STA (12:03)
[2019-03-18] MEDS ORDERED: MIDAZOLAM 2 MG/2 ML VIAL IVP ONE (12:14)
[2019-03-18] MEDS ORDERED: PROPOFOL 10 MG/ML 20 ML VIAL IV ONE (12:38)
[2019-03-18] MEDS ORDERED: GLYCOPYRROLATE 0.2 MG/ML 2 ML VIAL ONE (12:38)
[2019-03-18] MEDS ORDERED: fentaNYL (PF) 50 MCG/ML 2 ML AMP ONE (12:38)
[2019-03-18] MEDS ORDERED: MIDAZOLAM 2 MG/2 ML VIAL ONE (12:38)
[2019-03-18] MEDS ORDERED: ROCURONIUM BROMIDE 10 MG/ML 10 ML VIAL IV ONE (12:38)
[2019-03-18] MEDS ORDERED: NEOSTIGMINE 1 MG/ML 10 ML VIAL ONE (12:38)
[2019-03-18] MEDS ORDERED: SUCCINYLCHOLINE CHLORIDE 100 MG/5 ML SYR IV ONE (12:38)
[2019-03-18] MEDS ORDERED: LIDOCAINE 1%-EPI 1:100,000 20 ML VIAL SQ ONE (13:06)
[2019-03-18] MEDS ORDERED: LACTATED RINGERS 1,000 ML IV ONE ×2 (13:19→13:22)
[2019-03-18] MEDS ORDERED: HYDROcodone/APAP 5-325MG 1 EACH TAB PO PRN (13:22)
[2019-03-18] MEDS ORDERED: NALOXONE 0.4 MG/ML 1 ML VIAL IV PRN (13:22)
--- NOTE | 2019-03-18 13:22 | P.OP ---
Date of Procedure: 03/18/19 Preoperative Diagnosis: Acute appendicitis Postoperative Diagnosis: Acute appendicitis Procedure(s) Performed: Laparoscopic appendectomy Anesthesia: LANDEN Surgeon: Milton Linder Pathology: other (Appendix) Condition: stable Disposition: PACU Description of Procedure: The patient's placed on the operating table in the supine position. The patient received general anesthesia. The abdomen was prepped and draped in the usual sterile fashion. The skin was anesthetized 1% local Xylocaine at the trocar sites. Using an 11 blade the skin was incised at the umbilicus. The umbilicus was grasped with a Radha clamp and then a Veress needle was placed into the peritoneal cavity. Position of the Veress needle was confirmed with positive drop test. After adequate insufflation a 5 mm trocar was placed into the peritoneal cavity. The abdomen was further insufflated. And then the laparoscope was placed in the peritoneal cavity. Next a 5 mm trocar was placed in the midline suprapubic position. And then a 10 mm trocar was placed in the midline epigastric position. The patient was rotated with the right side up and in Trendelenburg. The appendix was visualized. The appendix appeared to be inflamed. The appendix was grasped and then using the Harmonic scissors the mesoappendix was divided. A PDS Endoloop was then placed around the base of the appendix. And then the appendix was divided using Harmonic scissors. The appendix was placed into an Endo Catch and brought out through the 10 mm trocar site. The abdomen was irrigated. There is no bleeding seen. The trochars withdrawn. The skin was closed interrupted 3-0 Monocryl suture. Dermabond dressing was applied. Patient was sent to recovery room in stable condition.
[2019-03-18] MEDS ORDERED: diphenhydrAMINE 50 MG/ML 1 ML VIAL IVP ONE (13:35)
[2019-03-18] MEDS: KETOROLAC 30 MG/ML 1 ML VIAL IVP SCH ×2 (17:21→18:38)
[2019-03-18 23:05] LABS: ALT 66 U/L (9-52); AST 35 U/L (14-36); African American GFR (CKD) >90 (>60 ml/min/1.73 sqM); Alkaline Phosphatase 70 U/L (38-126); Anion Gap 11 mmol/L; Blood Urea Nitrogen 9 mg/dL (7-17); Calcium 9.4 mg/dL (8.4-10.2); Carbon Dioxide 22 mmol/L (22-30); Chloride 109 mmol/L (98-107); Glucose 121 mg/dL (74-99); Non-African American GFR(CKD) >90 (>60 ml/min/1.73 sqM); Potassium 4.3 mmol/L (3.5-5.1); Sodium 142 mmol/L (137-145); Total Bilirubin 0.4 mg/dL (0.2-1.3); Total Protein 6.5 g/dL (6.3-8.2)
[2019-03-19] MEDS: KETOROLAC 30 MG/ML 1 ML VIAL IVP SCH ×2 (00:25→05:59)
[2019-03-19] MEDS: metroNIDAZOLE-NS PMX 500 MG in SALINE 1 100ML.BAG IVPB SCH ×2 (00:26→09:13)
--- NOTE | 2019-03-19 05:25 | CONS ---
CONSULTATION REASON FOR CONSULTATION: Advice regarding ADD/ADHD and other medical issues requested by Dr. Linder. HISTORY OF PRESENT ILLNESS: This 23-year-old woman with a past medical history of ADD, ADHD, bipolar depression, being followed by Dr. Dinh in the outpatient setting was admitted with abdominal pain. The patient had abdominal pelvis CAT scan which showed thickened appendix and surrounding inflammation and the patient underwent laparoscopic appendectomy by Dr. Linder and the patient admitted for further evaluation and treatment. There is no history of fever, rigors. No history of headache, loss of consciousness, seizures, palpitations, hematochezia or melena at this time. PAST MEDICAL HISTORY: History of ADD/ADHD, bipolar depression. MEDICATIONS: Medications are home medications: 1. Ibuprofen 400 mg q.6 p.r.n. 2. Bentyl 20 mg p.o. q.i.d. 3. [place] 5 mg q.6 p.r.n. ALLERGIES: Allergies are AMOXICILLIN. FAMILY HISTORY: History of cholecystectomy, cholecystitis in the family. SOCIAL HISTORY: No history of smoking, history of THC. REVIEW OF SYSTEMS: ENT: No diminished hearing or diminished vision. CARDIOVASCULAR SYSTEM: No angina or palpitations. RESPIRATORY SYSTEM: No cough or hemoptysis. GI: No nausea. : No dysuria. NERVOUS SYSTEM: No numbness or weakness. ALLERGY/IMMUNOLOGY: No asthma or hayfever. MUSCULOSKELETAL: As mentioned earlier. HEMATOLOGY/ONCOLOGY: No history of anemia. ENDOCRINE: No history of diabetes or hypothyroidism. CONSTITUTIONAL: As mentioned earlier. DERMATOLOGY: Negative. RHEUMATOLOGY: Negative. PSYCHIATRY: As mentioned earlier. PHYSICAL EXAMINATION: The patient is alert and oriented x3. Pulse 76, blood pressure 135/80, respirations 16, temperature is normal, pulse ox 98% on room air. HEENT: Conjunctivae normal. Oral mucosa moist. Neck is no jugular venous distention. No carotid bruit. No lymph node enlargement. CARDIOVASCULAR: S1, S2 muffled. No S3, no S4. RESPIRATORY: Breath sounds diminished in the bases. No rhonchi. No crackles. ABDOMEN: Soft, status post surgery. LEGS: No edema, no swelling. NERVOUS SYSTEM: Higher function as mentioned earlier. Moves all 4 limbs. No focal deficits. LYMPHATICS: No lymphadenopathy of the neck, axillae or groin. SKIN: No ulcer, rash or bleeding. JOINTS: No active deforming arthropathy. LABS: WBC 14.5. AST is 98, ALT is 107. ASSESSMENT: 1. Acute appendicitis, status post laparoscopic appendectomy. 2. Increased AST, ALT of undetermined etiology. 3. Increased WBC. 4. History of attention deficit disorder, attention deficit hyperactivity disorder. 5. History of bipolar depression. 6. History of THC. RECOMMENDATIONS AND DISCUSSION: In this 23-year-old woman who presented with multiple medical issues, at this time I recommend to continue current medications, incentive spirometry, DVT prophylaxis. I would recommend repeat labs otherwise empiric antibiotics. We will follow the patient closely and the patient may be asked to follow up with primary physician, Dr. Dinh, in the outpatient setting. Thank you Dr. Linder for letting us participate in the care of this patient. MMODL / IJN: [id number] /
[2019-03-19 07:27] LABS: Anisocytosis Slight; Basophils % (A) 0 %; Eosinophils % (A) 0 %; HCT 33.2 % (34.0-46.0); HGB 10.5 gm/dL (11.4-16.0); Hypochromasia Slight; Lymphocytes # (A) 1.3 k/uL (1.0-4.8); Lymphocytes % (A) 12 %; MCH 23.2 pg (25.0-35.0); MCHC 31.5 g/dL (31.0-37.0); MCV 73.6 fL (80.0-100.0); Mean Platelet Volume 6.9; Microcytosis Moderate; Monocytes # (A) 0.6 k/uL (0-1.0); Monocytes % (A) 6 %; Neutrophils # (A) 8.3 k/uL (1.3-7.7); Neutrophils % (A) 80 %; Platelet Count 180 k/uL (150-450); RBC 4.51 m/uL (3.80-5.40); RDW 16.4 % (11.5-15.5); WBC 10.4 k/uL (3.8-10.6)
[2019-03-19] MEDS ORDERED: ENOXAPARIN 40 MG/0.4 ML SYRINGE SQ SCH (09:00)
[2019-03-19] MEDS: PANTOPRAZOLE 40 MG/10 ML VIAL IV SCH (09:12)
--- NOTE | 2019-03-19 09:43 | P.DS ---
<Michaela Valentin - Last Filed: 03/19/19 09:42> Providers Expected date of discharge: 03/19/19 Hospital Course: 23-year-old female who presented to the emergency room with a chief complaint of abdominal pain. Workup completed in the emergency room revealed evidence of appendicitis. Patient underwent laparoscopic appendectomy with Dr. Linder on March 18, 2019. Patient is doing well postoperatively without any immediate complications. She is tolerating diet without nausea or vomiting. Pain is controlled on oral medications. Vital signs have been stable. She is stable for discharge home today. Please see EMR for further hospital course details. Discharge Diagnosis: 1. Abdominal pain 2. Acute appendicitis 3. Mildly elevated liver enzymes Nurse practitioner note has been reviewed by physician. Signing provider agrees with the documented findings, assessment, and plan of care. Patient Condition at Discharge: Stable Plan - Discharge Summary Discharge Rx Participant: No New Discharge Prescriptions: New Hydrocodone/Acetaminophen [[place] 5-325] 1 tab PO Q6HR PRN 3 Days #12 tab PRN Reason: Pain No Action Dicyclomine [Bentyl] 20 mg PO QID #15 tablet Ibuprofen 400 mg PO Q6H PRN PRN Reason: Pain Discharge Medication List Dicyclomine [Bentyl] 20 mg PO QID #15 tablet 03/16/19 [Rx] Ibuprofen 400 mg PO Q6H PRN 03/17/19 [History] Hydrocodone/Acetaminophen [[place] 5-325] 1 tab PO Q6HR PRN 3 Days #12 tab 03/18/19 [Rx] Follow up Appointment(s)/Referral(s): Carmelita Dinh MD [Primary Care Provider] - 1-2 days Milton Linder MD [STAFF PHYSICIAN] - 1 Week Activity/Diet/Wound Care/Special Instructions: No driving while taking [place] No lifting over 10 pounds You may shower. No soaking or tub baths Very light activity until you are reevaluated at your follow up appointment with your surgeon Discharge Disposition: HOME SELF-CARE <Sherman Burns - Last Filed: 03/19/19 12:42> Providers Date of admission: 03/17/19 21:16 Attending physician: Milton Linder Consults: 03/18/19 13:22 Consult Physician Routine Consulting Provider: William Rachel Consult Reason/Comments: Medical management Do you want consulting provider notified?: Yes Primary care physician: Fabrizio Mae
[2019-03-19 09:44] VITALS: BP 136/78; PULSE 66; RESP 16; TEMP 98
== END 2019-03-19 11:10 | disposition home or self-care (01) ==
LOC: EC 17:15 → 6PED 21:16
PROVIDERS: ADMIT Surgery; ATTEND Surgery
DX: K35.80 Unspecified acute appendicitis (principal); R74.0 Nonspecific elevation of levels of transaminase and lactic acid dehydrogenase [LDH]; F90.9 Attention-deficit hyperactivity disorder, unspecified type; F32.9 Major depressive disorder, single episode, unspecified; Z88.0 Allergy status to penicillin; Z98.890 Other specified postprocedural states; Z97.2 Presence of dental prosthetic device (complete) (partial); Z79.899 Other long term (current) drug therapy; Z83.79 Family history of other diseases of the digestive system
CPT/HCPCS: 44970; 96375 ×2; 96376 ×2; 96361; 96374; 99285; 36415; 81025 ×2; 88304; 80053 ×2; 82150; 83605; 83690; 85025 ×2; 85730; 81001; 87040; 76705; 74177; G0378 ×3; J2250; J2270; J1200; J1100; J2710; J2405 ×2; J1650; J0696 ×2; J3010; J1885 ×3; J0330; J2704; C9113 ×2; Q9967

== ENCOUNTER 2020-09-28 08:07 | Emergency (ER) | payer OTHER ==
[2020-09-28 08:16] VITALS: BP 138/93; PULSE 60; RESP 18; TEMP 97.8
[2020-09-28] MEDS ORDERED: ONDANSETRON 4 MG/2 ML VIAL IVP STA (08:32)
[2020-09-28] MEDS ORDERED: FAMOTIDINE 20 MG/2 ML VIAL IV STA (08:32)
[2020-09-28] MEDS ORDERED: SODIUM CHLORIDE 0.9% 1,000 ML IV STA (08:32)
[2020-09-28 09:02] LABS: Anisocytosis Slight; Basophils % (A) 1 %; Eosinophils # (A) 0.1 k/uL (0-0.7); Eosinophils % (A) 2 %; HCT 39.5 % (34.0-46.0); Lymphocytes % (A) 27 %; MCH 25.7 pg (25.0-35.0); Mean Platelet Volume 7.4; Microcytosis Slight; Monocytes # (A) 0.3 k/uL (0-1.0); Monocytes % (A) 5 %; Neutrophils # (A) 4.6 k/uL (1.3-7.7); Neutrophils % (A) 64 %; Platelet Count 170 k/uL (150-450); RBC 5.06 m/uL (3.80-5.40); RDW 16.2 % (11.5-15.5); WBC 7.3 k/uL (3.8-10.6)
[2020-09-28 09:04] LABS: Appearance,Urine Cloudy (Clear); Bilirubin,Urine Negative (Negative); Blood,Urine Negative (Negative); Calcium Oxalate Crystals,Urine Rare /hpf; Color,Urine Yellow; Glucose,Urine (UA) Negative (Negative); Ketones,Urine Negative (Negative); Leukocyte Esterase,Urine Moderate (Negative); Mucus,Urine Moderate /hpf; Nitrite,Urine Negative (Negative); PH, Urine 5.5 (5.0-8.0); Protein,Urine Trace (Negative); RBC,Urine 1 /hpf (0-5); Specific Gravity,Urine 1.029 (1.001-1.035); Squamous Epithelial Cell,Urine 11 /hpf (0-4); WBC,Urine 2 /hpf (0-5)
[2020-09-28 09:12] LABS: ALT 70 U/L (4-34); AST 41 U/L (14-36); African American GFR (CKD) >90 (>60 ml/min/1.73 sqM); Albumin 4.4 g/dL (3.5-5.0); Alkaline Phosphatase 107 U/L (38-126); Amylase 57 U/L (30-110); Anion Gap 6 mmol/L; Blood Urea Nitrogen 10 mg/dL (7-17); Calcium 9.2 mg/dL (8.4-10.2); Carbon Dioxide 25 mmol/L (22-30); Chloride 109 mmol/L (98-107); Glucose 111 mg/dL (74-99); Lipase 44 U/L (23-300); Non-African American GFR(CKD) >90 (>60 ml/min/1.73 sqM); Potassium 4.2 mmol/L (3.5-5.1); Sodium 140 mmol/L (137-145); Total Bilirubin 0.8 mg/dL (0.2-1.3); Total Protein 7.2 g/dL (6.3-8.2)
--- NOTE | 2020-09-28 09:24 | XR ---
EXAMINATION TYPE: XR KUB DATE OF EXAM: 09/28/2020 Comparison: 03/16/2019 Clinical History: 25-year-old female abdominal pain Findings: No evidence for free intraperitoneal air. No dilated small bowel or air-fluid levels. Only mild stool within the right side of the colon. No suspicious calcifications seen. Impression: No evidence for free air or bowel obstruction. Mild stool in the right side of the abdomen.
[2020-09-28] MEDS ORDERED: KETOROLAC 15 MG/ML 1 ML VIAL IVP STA (09:42)
--- NOTE | 2020-09-28 09:43 | ED ---
General Adult HPI - General Chief complaint: Abdominal Pain Stated complaint: Abd/Back Pain Time Seen by Provider: 09/28/20 08:16 Source: patient Mode of arrival: ambulatory Limitations: no limitations - History of Present Illness Initial comments: 25-year-old female with a past medical history of appendectomy, marijuana use presents to the emergency room for a chief complaint of abdominal pain. Patient states that she has had abdominal pain for about a month and a half now. States it wraps around to her back as well. Patient states the pain is in the upper abdomen. States that she did see her primary care provider for this he gave her a medication for stomach ulcers. She reports she thought it was helping at first but last night the pain worsened again. States she is nauseous because of the pain. Patient denies vomiting. Patient denies noticing any worsening pain after eating. Patient denies fevers or chills. Patient has not been referred to a GI doctor as of yet.Patient has no other complaints at this time including shortness of breath, chest pain, vomiting, headache, or visual changes. - Related Data Home Medications Medication Instructions Recorded Confirmed Acetaminophen Tab [Tylenol Tab] 1,000 mg PO Q6HR PRN 09/28/20 09/28/20 Pantoprazole [Protonix] 40 mg PO DAILY 09/28/20 09/28/20 Allergies Allergy/AdvReac Type Severity Reaction Status Date / Time amoxicillin Allergy Intermediate Rash/Hives Verified 09/28/20 09:25 Review of Systems ROS Statement: Those systems with pertinent positive or pertinent negative responses have been documented in the HPI. ROS Other: All systems not noted in ROS Statement are negative. Past Medical History Past Medical History: No Reported History Additional Past Medical History / Comment(s): stomach ulcer History of Any Multi-Drug Resistant Organisms: None Reported Past Surgical History: Appendectomy Additional Past Surgical History / Comment(s): wisdom tooth removal Past Anesthesia/Blood Transfusion Reactions: No Reported Reaction Past Psychological History: ADD/ADHD, Bipolar, Depression Smoking Status: Never smoker Past Alcohol Use History: Occasional Past Drug Use History: Marijuana, Prescription Drug Abuse - Past Family History Father Additional Family Medical History / Comment(s): choly General Exam Limitations: no limitations General appearance: alert, in no apparent distress Head exam: Present: atraumatic, normocephalic, normal inspection Eye exam: Present: normal appearance, PERRL, EOMI. Absent: scleral icterus, conjunctival injection, periorbital swelling ENT exam: Present: normal exam, mucous membranes moist Neck exam: Present: normal inspection, full ROM. Absent: tenderness, meningismus, lymphadenopathy Respiratory exam: Present: normal lung sounds bilaterally. Absent: respiratory distress, wheezes, rales, rhonchi, stridor Cardiovascular Exam: Present: regular rate, normal rhythm, normal heart sounds. Absent: systolic murmur, diastolic murmur, rubs, gallop, clicks GI/Abdominal exam: Present: soft, tenderness (mild epigastric, RUQ tenderness), normal bowel sounds. Absent: distended, guarding, rebound, rigid Course Vital Signs 09/28/20 08:12 Temperature 97.8 F Pulse Rate 60 Respiratory 18 Rate Blood Pressure 138/93 O2 Sat by Pulse 100 Oximetry Medical Decision Making - Medical Decision Making Vitals are stable. Patient well-appearing. she is presenting for abdominal pain ongoing for about 6 weeks now. She has some mild epigastric tenderness. No lower abdominal tenderness. Patient has a history of appendectomy. CBC was obtained, white blood count that was normal. CMP shows minimal transaminitis. Urinalysis does not show any obvious evidence of infection. HCG is negative. X-ray of the abdomen showed no evidence of free air or bowel obstruction. Gallbladder ultrasound showed an overall normal homogeneous appearance of the liver. No gallstones or biliary ductal dilation. Patient was given pain med ication and did have significant improvement in symptoms. Patient will be discharged home to follow up with GI. She will return here for any worsening symptoms. - Lab Data Result diagrams: 09/28/20 08:50 09/28/20 08:50 Lab Results 09/28/20 09/28/20 09/28/20 Range/Units 08:50 08:50 08:50 WBC 7.3 (3.8-10.6) k/uL RBC 5.06 (3.80-5.40) m/uL Hgb 13.0 (11.4-16.0) gm/dL Hct 39.5 (34.0-46.0) % MCV 78.0 L (80.0-100.0) fL MCH 25.7 (25.0-35.0) pg MCHC 33.0 (31.0-37.0) g/dL RDW 16.2 H (11.5-15.5) % Plt Count 170 (150-450) k/uL MPV 7.4 Neutrophils % 64 % Lymphocytes % 27 % Monocytes % 5 % Eosinophils % 2 % Basophils % 1 % Neutrophils # 4.6 (1.3-7.7) k/uL Lymphocytes # 2.0 (1.0-4.8) k/uL Monocytes # 0.3 (0-1.0) k/uL Eosinophils # 0.1 (0-0.7) k/uL Basophils # 0.0 (0-0.2) k/uL Anisocytosis Slight Microcytosis Slight Sodium (137-145) mmol/L Potassium (3.5-5.1) mmol/L Chloride (98-107) mmol/L Carbon Dioxide (22-30) mmol/L Anion Gap mmol/L BUN (7-17) mg/dL Creatinine (0.52-1.04) mg/dL Est GFR (CKD-EPI)AfAm (>60 ml/min/1.73 sqM) Est GFR (CKD-EPI)NonAf (>60 ml/min/1.73 sqM) Glucose (74-99) mg/dL Calcium (8.4-10.2) mg/dL Total Bilirubin (0.2-1.3) mg/dL AST (14-36) U/L ALT (4-34) U/L Alkaline Phosphatase (38-126) U/L Total Protein (6.3-8.2) g/dL Albumin (3.5-5.0) g/dL Amylase (30-110) U/L Lipase (23-300) U/L Urine Color Yellow Urine Appearance Cloudy H (Clear) Urine pH 5.5 (5.0-8.0) Ur Specific [place] 1.029 (1.001-1.035) Urine Protein Trace H (Negative) Urine Glucose (UA) Negative (Negative) Urine Ketones Negative (Negative) Urine Blood Negative (Negative) Urine Nitrite Negative (Negative) Urine Bilirubin Negative (Negative) Urine Urobilinogen 2.0 (<2.0) mg/dL Ur Leukocyte Esterase Moderate H (Negative) Urine RBC 1 (0-5) /hpf Urine WBC 2 (0-5) /hpf Ur Squamous Epith Cells 11 H (0-4) /hpf Calcium Oxalate Crystal Rare H (None) /hpf Urine Mucus Moderate H (None) /hpf Urine HCG, Qual Not Detected (Not Detectd) 09/28/20 Range/Units 08:50 WBC (3.8-10.6) k/uL RBC (3.80-5.40) m/uL Hgb (11.4-16.0) gm/dL Hct (34.0-46.0) % MCV (80.0-100.0) fL MCH (25.0-35.0) pg MCHC (31.0-37.0) g/dL RDW (11.5-15.5) % Plt Count (150-450) k/uL MPV Neutrophils % % Lymphocytes % % Monocytes % % Eosinophils % % Basophils % % Neutrophils # (1.3-7.7) k/uL Lymphocytes # (1.0-4.8) k/uL Monocytes # (0-1.0) k/uL Eosinophils # (0-0.7) k/uL Basophils # (0-0.2) k/uL Anisocytosis Microcytosis Sodium 140 (137-145) mmol/L Potassium 4.2 (3.5-5.1) mmol/L Chloride 109 H (98-107) mmol/L Carbon Dioxide 25 (22-30) mmol/L Anion Gap 6 mmol/L BUN 10 (7-17) mg/dL Creatinine 0.78 (0.52-1.04) mg/dL Est GFR (CKD-EPI)AfAm >90 (>60 ml/min/1.73 sqM) Est GFR (CKD-EPI)NonAf >90 (>60 ml/min/1.73 sqM) Glucose 111 H (74-99) mg/dL Calcium 9.2 (8.4-10.2) mg/dL Total Bilirubin 0.8 (0.2-1.3) mg/dL AST 41 H (14-36) U/L ALT 70 H (4-34) U/L Alkaline Phosphatase 107 (38-126) U/L Total Protein 7.2 (6.3-8.2) g/dL Albumin 4.4 (3.5-5.0) g/dL Amylase 57 (30-110) U/L Lipase 44 (23-300) U/L Urine Color Urine Appearance (Clear) Urine pH (5.0-8.0) Ur Specific [place] (1.001-1.035) Urine Protein (Negative) Urine Glucose (UA) (Negative) Urine Ketones (Negative) Urine Blood (Negative) Urine Nitrite (Negative) Urine Bilirubin (Negative) Urine Urobilinogen (<2.0) mg/dL Ur Leukocyte Esterase (Negative) Urine RBC (0-5) /hpf Urine WBC (0-5) /hpf Ur Squamous Epith Cells (0-4) /hpf Calcium Oxalate Crystal (None) /hpf Urine Mucus (None) /hpf Urine HCG, Qual (Not Detectd) Disposition Clinical Impression: Abdominal pain Disposition: HOME SELF-CARE Condition: Good Instructions (If sedation given, give patient instructions): Abdominal Pain (ED) Additional Instructions: Please follow up with primary care as well as GI or surgery. if you have any worsening symptoms return to the emergency room Is patient prescribed a controlled substance at d/c from ED?: No Referrals: Carmelita Dinh MD [Primary Care Provider] - 1-2 days Cj Baez MD [STAFF PHYSICIAN] - 1-2 days Milton Linder MD [STAFF PHYSICIAN] - 1-2 days Time of Disposition: 10:09
--- NOTE | 2020-09-28 09:59 | US ---
EXAMINATION TYPE: US gallbladder DATE OF EXAM: 09/28/2020 COMPARISON: US 03/17/2019 CLINICAL HISTORY: 25-year-old female pain. Abdomen pain and N/V x 1 day TECHNIQUE: Multiple sonographic images of the right upper quadrant are obtained. FINDINGS: EXAM MEASUREMENTS: Liver Length: 15.3 cm Gallbladder Wall: 2.3 mm CBD: 3.7 mm Right Kidney: 10.8 x 4.8 x 4.9 cm Pancreas: Only a small portion of the pancreatic neck is seen. Remainder is obscured by bowel gas sh adowing. Liver: Overall homogeneous appearance. No focal lesion. Gallbladder: No abnormal distention, wall thickening, pericholecystic fluid, or shadowing calculi. Evidence for sonographic Pearl's sign: no CBD: visualized portions wnl, limited by overlying bowel gas Right Kidney: wnl IMPRESSION: Overall normal, homogeneous appearance to the liver. No gallstones or biliary ductal dilatation. Subo ptimal visualization of the pancreas.
== END 2020-09-28 10:25 | disposition home or self-care (01) ==
LOC: EC 08:07
DX: R10.11 Right upper quadrant pain (principal); R10.13 Epigastric pain; R11.0 Nausea; F31.9 Bipolar disorder, unspecified; F12.90 Cannabis use, unspecified, uncomplicated; Z90.89 Acquired absence of other organs
CPT/HCPCS: 36415; 80053; 82150; 83690; 85025; 81001; 81025; 74018; 76705; 99284; 96374; 96375 ×2; 96361; J2405; J1885

== ENCOUNTER 2022-09-05 21:47 | Emergency (ER) | payer OTHER ==
[2022-09-05 22:08] VITALS: BP 134/90; PULSE 96; RESP 18; TEMP 98.1
[2022-09-05] MEDS ORDERED: ACET/COD 300 MG/30 MG STARTER PACK 6 TAB BTL PO STA (22:15)
[2022-09-05] MEDS ORDERED: IBUPROFEN 600 MG STARTER PACK 4 TAB BTL PO STA (22:15)
[2022-09-05] MEDS ORDERED: CLINDAMYCIN 150 MG CAP PO STA (22:15)
--- NOTE | 2022-09-05 22:18 | ED ---
ENT HPI - General Chief complaint: Dental/Oral Stated complaint: DENTAL PAIN Time Seen by Provider: 09/05/22 22:14 Source: patient, RN notes reviewed Mode of arrival: ambulatory Limitations: no limitations - History of Present Illness Initial comments: This is a 27-year-old female who presents to the emergency department for dental pain. States that this woke her from her sleep around 7 AM. Reports pain in the molars on both sides of her lower jaw. States she grinds her teeth in her sleep and also chipped her tooth on something over Thanksgiving, contributing to this issue. She was told that she needs to have root canals and crowns placed. She was told by her dentist that she needs to have this done by an oral surgeon, and is still waiting to get a call back about an appointment. Denies any history of dental abscess. Denies any fevers, chills, sore throat, cough, dyspnea, chest pain, palpitations, abdominal pain, nausea, vomiting, diarrhea, back pain, or headaches. MD complaint: tooth pain - Related Data Home Medications Medication Instructions Recorded Confirmed Acetaminophen Tab [Tylenol Tab] 1,000 mg PO Q6HR PRN 09/28/20 09/28/20 Pantoprazole [Protonix] 40 mg PO DAILY 09/28/20 09/28/20 Previous Rx's Medication Instructions Recorded Clindamycin [Cleocin] 450 mg PO Q8H 10 Days #90 cap 09/05/22 Ibuprofen [Motrin] 600 mg PO Q6HR PRN #20 tab 09/05/22 Allergies Allergy/AdvReac Type Severity Reaction Status Date / Time amoxicillin Allergy Intermediate Rash/Hives Verified 09/05/22 22:05 Review of Systems ROS Statement: Those systems with pertinent positive or pertinent negative responses have been documented in the HPI. ROS Other: All systems not noted in ROS Statement are negative. Past Medical History Past Medical History: No Reported History Additional Past Medical History / Comment(s): stomach ulcer History of Any Multi-Drug Resistant Organisms: None Reported Past Surgical History: Appendectomy Additional Past Surgical History / Comment(s): wisdom tooth removal Past Anesthesia/Blood Transfusion Reactions: No Reported Reaction Past Psychological History: ADD/ADHD, Bipolar, Depression Smoking Status: Vaper Past Alcohol Use History: Occasional Past Drug Use History: Marijuana, Prescription Drug Abuse - Past Family History Father Additional Family Medical History / Comment(s): choly General Exam Limitations: no limitations General appearance: alert, in no apparent distress Head exam: Present: atraumatic, normocephalic, normal inspection ENT exam: Present: other (Teeth 19 and 30 both appear to be chipped. There is erythema and swelling to the surrounding gums. No palpable abscess.) Respiratory exam: Present: normal lung sounds bilaterally. Absent: respiratory distress, wheezes, rales, rhonchi, stridor Cardiovascular Exam: Present: regular rate, normal rhythm, normal heart sounds. Absent: systolic murmur, diastolic murmur, rubs, gallop, clicks Neurological exam: Present: alert, oriented X3, CN II-XII intact Psychiatric exam: Present: normal affect, normal mood Skin exam: Present: warm, dry, intact, normal color. Absent: rash Course Vital Signs 09/05/22 22:05 Temperature 98.1 F Pulse Rate 96 Respiratory 18 Rate Blood Pressure 134/90 O2 Sat by Pulse 98 Oximetry Medical Decision Making - Medical Decision Making This is a 27-year-old female who presents to the emergency department for dental pain. Was pt. sent in by a medical professional or institution? @ -No Did you speak to anyone other than the patient for history? @ -No Did you review nursing and triage notes? @ -Yes, and I agree, it is accurate with regards to the patient's symptoms. Were old charts reviewed? @ -No Differential Diagnosis? @ -Differential Dental Pain: Dental abscess, chipped tooth, dental carries, hieu's angina, trigeminal neuralgia, this is not meant to be an all-inclusive list. EKG interpreted by me (3pts min.)? @ -Not obtained X-rays interpreted by me (1pt min.)? @ -Not obtained CT interpreted by me (1pt min.)? @ -Not obtained U/S interpreted by me (1pt. min.)? @ -Not obtained What testing was considered but not performed? (CT, X-rays, U/S, labs)? Why? @ -None What meds were considered but not given? Why? @ -None Did you discuss the management of the patient with other professionals? @ -No Did you reconcile home meds? @ -No Was smoking cessation discussed for >3mins.? @ -No Was critical care preformed (if so, how long)? @ -No Were there social determinants of health that impacted care today? How? (Homelessness, low income, unemployed, alcoholism, drug addiction, transportation, low edu. Level, literacy, decrease access to med. care, detention, rehab)? @ -No Was there de-escalation of care discussed even if they declined? (Discuss DNR or withdrawal of care, Hospice)? @ -No What co-morbidities impacted this encounter? (DM, HTN, Smoking, COPD, CAD, Cancer, CVA, Hep., AIDS, mental health diagnosis, sleep apnea, morbid obesity)? @ -None Was patient admitted / discharged? @ -Discharged. Physical examination does not suggest a dental abscess, however there is erythema and swelling around the gums of the affected teeth which may represent an infection. Rx for clindamycin and ibuprofen provided with dosing instructions reviewed. Initial dose of clindamycin administered in the emergency department. Advised she take Tylenol as well for additional pain rel ief. Given that she was told by her dentist that she needs to see an oral surgeon, she was given information for follow-up with oral surgery as well. Undiagnosed new problem with uncertain prognosis? @ -None Drug Therapy requiring intensive monitoring for toxicity (Heparin, Nitro, Insulin, Cardizem)? @ -None Were any procedures done? @ -None Diagnosis/symptom? @ -Dental infection Acute, or Chronic, or Acute on Chronic? @ -Acute Uncomplicated (without systemic symptoms) or Complicated (systemic symptoms)? @ -Uncomplicated Side effects of treatment? @ -None Exacerbation, Progression, or Severe Exacerbation] @ -Not applicable Poses a threat to life or bodily function? @ -No Return precautions reviewed in depth, the patient is instructed to return to the emergency department with any new, worsening, or concerning symptoms. Patient verbalized understanding. This case was discussed in detail with the attending ED physician, Dr. Sawant. Presentation, findings, and treatment plan discussed in detail as well. Disposition Clinical Impression: Dental infection Disposition: HOME SELF-CARE Instructions (If sedation given, give patient instructions): Dental Abscess (ED), Toothache (ED) Additional Instructions: Return to the emergency department with any new, worsening, or concerning sympto ms. Take the antibiotic as prescribed for 10 days. Alternate with ibuprofen and Tylenol as needed for pain relief. Try contacting the oral surgeon as listed below to see if they can get you in for a follow-up appointment and management of your dental care. Prescriptions: Clindamycin [Cleocin] 450 mg PO Q8H 10 Days #90 cap Ibuprofen [Motrin] 600 mg PO Q6HR PRN #20 tab PRN Reason: Pain Is patient prescribed a controlled substance at d/c from ED?: No Referrals: Carmelita Dinh MD [Primary Care Provider] - 1-2 days Kj Jay DDS [STAFF PHYSICIAN] - 1-2 days
[2022-09-05] MEDS ORDERED: KETOROLAC 15 MG/ML 1 ML VIAL IM STA (22:23)
[2022-09-05] MEDS ORDERED: HYDROcodone/APAP 5-325MG 1 EACH TAB PO STA (22:23)
== END 2022-09-05 22:44 | disposition home or self-care (01) ==
LOC: EC 21:47
DX: K04.7 Periapical abscess without sinus (principal); F17.290 Nicotine dependence, other tobacco product, uncomplicated; F12.90 Cannabis use, unspecified, uncomplicated; F15.90 Other stimulant use, unspecified, uncomplicated; Z88.0 Allergy status to penicillin; Z90.49 Acquired absence of other specified parts of digestive tract
CPT/HCPCS: 99283; 96372 ×2; 99282; J1885

== ENCOUNTER 2022-10-04 07:01 | Emergency (ER) | payer OTHER ==
[2022-10-04 07:04] VITALS: BP 141/81; PULSE 58; RESP 18; TEMP 97.7
[2022-10-04] MEDS ORDERED: ACET/COD 300 MG/30 MG STARTER PACK 6 TAB BTL PO STA (07:12)
--- NOTE | 2022-10-04 07:18 | ED ---
ENT HPI - General Chief complaint: Dental/Oral Stated complaint: Toothpain Time Seen by Provider: 10/04/22 07:05 Source: patient, RN notes reviewed Mode of arrival: ambulatory Limitations: no limitations - History of Present Illness Initial comments: 27-year-old female presented to the ER with chief complaint of tooth pain. Patient states she is in need a root canal on her lower left molar. It is having difficulty getting in to see a dentist. She states she woke up this morning in excruciating pain. She has tried taking ibuprofen [id number] with no relief. She has been using dentafix to cover the area. She admits to cold, heat and air increasing her pain. Denies any fevers, shortness of breath, chest pain. - Related Data Home Medications Medication Instructions Recorded Confirmed Acetaminophen Tab [Tylenol Tab] 1,000 mg PO Q6HR PRN 09/28/20 09/28/20 Pantoprazole [Protonix] 40 mg PO DAILY 09/28/20 09/28/20 Previous Rx's Medication Instructions Recorded Clindamycin [Cleocin] 450 mg PO Q8H 10 Days #90 cap 09/05/22 Ibuprofen [Motrin] 600 mg PO Q6HR PRN #20 tab 09/05/22 Ibuprofen [Motrin] 600 mg PO Q8HR PRN #20 tab 10/04/22 clindamycin HCL 300 mg PO QID #40 cap 10/04/22 Allergies Allergy/AdvReac Type Severity Reaction Status Date / Time amoxicillin Allergy Intermediate Rash/Hives Verified 10/04/22 07:04 Review of Systems ROS Statement: Those systems with pertinent positive or pertinent negative responses have been documented in the HPI. ROS Other: All systems not noted in ROS Statement are negative. Past Medical History Past Medical History: No Reported History Additional Past Medical History / Comment(s): stomach ulcer History of Any Multi-Drug Resistant Organisms: None Reported Past Surgical History: Appendectomy Additional Past Surgical History / Comment(s): wisdom tooth removal Past Anesthesia/Blood Transfusion Reactions: No Reported Reaction Past Psychological History: ADD/ADHD, Bipolar, Depression Smoking Status: Current every day smoker, Vaper Past Alcohol Use History: Occasional Past Drug Use History: Marijuana, Prescription Drug Abuse - Past Family History Father Additional Family Medical History / Comment(s): choly General Exam Limitations: no limitations General appearance: alert, in no apparent distress ENT exam: Present: mucous membranes moist, other (dental caries noted lower jaw, tenderness to palpation of TMJ and lower left jaw) Respiratory exam: Present: normal lung sounds bilaterally. Absent: respiratory distress, wheezes, rales, rhonchi, stridor Cardiovascular Exam: Present: regular rate, normal rhythm, normal heart sounds. Absent: systolic murmur, diastolic murmur, rubs, gallop, clicks Course Vital Signs 10/04/22 07:02 Temperature 97.7 F Pulse Rate 58 L Respiratory 18 Rate Blood Pressure 141/81 O2 Sat by Pulse 96 Oximetry Medical Decision Making - Medical Decision Making Was pt. sent in by a medical professional or institution (, CHARLA, MICROBIOLOGY ANALYST, urgent care, hospital, or longterm...) When possible be specific @ -No Did you speak to anyone other than the patient for history (EMS, parent, family, police, friend...)? What history was obtained from this source @ -No Did you review nursing and triage notes (agree or disagree)? Why? @ -I reviewed and agree with nursing and triage notes Were old charts reviewed (outside hosp., previous admission, EMS record, old EKG, old radiological studies, urgent care reports/EKG's, longterm records)? Report findings @ -No old charts were reviewed Differential Diagnosis (chest pain, altered mental status, abdominal pain women, abdominal pain men, vaginal bleeding, weakness, fever, dyspnea, syncope, head ache, dizziness, GI bleed, back pain, seizure, CVA, palpatations, mental health, musculoskeletal)? @ -Dental fracture, dental abscess, dental infection, dental caries EKG interpreted by me (3pts min.). @ -None X-rays interpreted by me (1pt min.). @ -None done CT interpreted by me (1pt min.). @ -None done U/S interpreted by me (1pt. min.). @ -None done What testing was considered but not performed or refused? (CT, X-rays, U/S, labs)? Why? @ -None What meds were considered but not given or refused? Why? @ -None Did you discuss the management of the patient with other professionals (professionals i.e. , CHARLA, MICROBIOLOGY ANALYST, lab, RT, psych nurse, mental health social worker, lime kiln worker, teacher, security officer, casework specialist)? Give summary @ -No Was smoking cessation discussed for >3mins.? @ -No Was critical care preformed (if so, how long)? @ -No Were there social determinants of health that impacted care today? How? (Homelessness, low income, unemployed, alcoholism, drug addiction, transportation, low edu. Level, literacy, decrease access to med. care, alf, rehab)? @ -No Was there de-escalation of care discussed even if they declined (Discuss DNR or withdrawal of care, Hospice)? DNR status @ -No What co-morbidities impacted this encounter? (DM, HTN, Smoking, COPD, CAD, Cancer, CVA, ARF, Chemo, Hep., AIDS, mental health diagnosis, sleep apnea, morbid obesity)? @ -None Was patient admitted / discharged? Hospital course, mention meds given and route, prescriptions, significant lab abnormalities, going to OR and other pertinent info. @ -Discharge patient has dental caries, possible underlying dental infection was started on clindamycin as she has an ALLERGY to penicillin products. Patient advised to follow-up with dentist return parameters were discussed. Undiagnosed new problem with uncertain prognosis? @ -No Drug Therapy requiring intensive monitoring for toxicity (Heparin, Nitro, Insulin, Cardizem)? @ -No Were any procedures done? @ -No Diagnosis/symptom? @ -Dental infection, dental pain Acute, or Chronic, or Acute on Chronic? @ -Acute Uncomplicated (without systemic symptoms) or Complicated (systemic symptoms)? @ -Uncomplicated Side effects of treatment? @ -No Exacerbation, Progression, or Severe Exacerbation? @ -No Poses a threat to life or bodily function? How? (Chest pain, [place], [place], pneumonia, PE, COPD, DKA, ARF, appy, cholecystitis, CVA, Diverticulitis, Homicidal, Suicidal, threat to staff... and all critical care pts) @ -No Disposition Clinical Impression: Dental infection, Toothache Disposition: HOME SELF-CARE Condition: Stable Instructions (If sedation given, give patient instructions): Toothache (ED) Additional Instructions: Please return to the Emergency Department if symptoms worsen or any other concerns. Prescriptions: clindamycin HCL 300 mg PO QID #40 cap Ibuprofen [Motrin] 600 mg PO Q8HR PRN #20 tab PRN Reason: Pain Is patient prescribed a controlled substance at d/c from ED?: No Referrals: Nonstaff,Physician [Primary Care Provider] - 1-2 days Time of Disposition: 07:18
== END 2022-10-04 07:40 | disposition home or self-care (01) ==
LOC: EC 07:01
DX: K04.7 Periapical abscess without sinus (principal); F12.90 Cannabis use, unspecified, uncomplicated; F17.290 Nicotine dependence, other tobacco product, uncomplicated; Z88.0 Allergy status to penicillin; Z86.59 Personal history of other mental and behavioral disorders
CPT/HCPCS: 99283

== ENCOUNTER 2022-11-09 12:10 | Emergency (ER) | payer OTHER ==
[2022-11-09 12:26] VITALS: RESP 16
[2022-11-09] MEDS ORDERED: KETOROLAC 15 MG/ML 1 ML VIAL IM STA (13:08)
[2022-11-09] MEDS ORDERED: HYDROcodone/APAP 7.5-325MG 1 EACH TAB PO ONE (13:08)
[2022-11-09] MEDS ORDERED: ACET/COD 300 MG/30 MG STARTER PACK 6 TAB BTL PO STA (13:09)
--- NOTE | 2022-11-09 13:11 | ED ---
ENT HPI - General Chief complaint: Dental/Oral Stated complaint: L Side Dental Pain Time Seen by Provider: 11/09/22 12:53 Source: patient, RN notes reviewed Mode of arrival: ambulatory Limitations: no limitations - History of Present Illness Initial comments: This is a 27-year-old female who presents to the emergency department for left lower tooth pain. States that this has been a fairly long-standing issue for her. However, over the last 2-3 days, the pain has increased in intensity. She takes ibuprofen 800 mg, but states that this is only effective for about an hour, and the pain then returns. She does have a root canal scheduled in 2 weeks, but is unable to get in any sooner. Denies any fevers or chills. Denies any fevers, chills, sore throat, cough, dyspnea, chest pain, palpitations, abdominal pain, nausea, vomiting, diarrhea, back pain, or headaches. MD complaint: tooth pain - Related Data Home Medications Medication Instructions Recorded Confirmed Acetaminophen Tab [Tylenol Tab] 1,000 mg PO Q6HR PRN 09/28/20 09/28/20 Pantoprazole [Protonix] 40 mg PO DAILY 09/28/20 09/28/20 Previous Rx's Medication Instructions Recorded Ibuprofen [Motrin] 600 mg PO Q6HR PRN #20 tab 09/05/22 Ibuprofen [Motrin] 600 mg PO Q8HR PRN #20 tab 10/04/22 clindamycin HCL 300 mg PO QID #40 cap 10/04/22 Clindamycin [Cleocin] 450 mg PO Q8H 10 Days #90 cap 11/09/22 Ketorolac [Toradol] 10 mg PO Q6HR PRN #15 tab 11/09/22 Allergies Allergy/AdvReac Type Severity Reaction Status Date / Time amoxicillin Allergy Intermediate Rash/Hives Verified 11/09/22 12:23 Review of Systems ROS Statement: Those systems with pertinent positive or pertinent negative responses have been documented in the HPI. ROS Other: All systems not noted in ROS Statement are negative. Past Medical History Past Medical History: No Reported History Additional Past Medical History / Comment(s): stomach ulcer History of Any Multi-Drug Resistant Organisms: None Reported Past Surgical History: Appendectomy Additional Past Surgical History / Comment(s): wisdom tooth removal Past Anesthesia/Blood Transfusion Reactions: No Reported Reaction Past Psychological History: ADD/ADHD, Bipolar, Depression Smoking Status: Current every day smoker, Vaper Past Alcohol Use History: Occasional Past Drug Use History: Marijuana, Prescription Drug Abuse - Past Family History Father Additional Family Medical History / Comment(s): choly General Exam Limitations: no limitations General appearance: alert, in no apparent distress Head exam: Present: atraumatic, normocephalic, normal inspection ENT exam: Present: other (Multiple dental caries and chipped teeth) Respiratory exam: Present: normal lung sounds bilaterally. Absent: respiratory distress, wheezes, rales, rhonchi, stridor Cardiovascular Exam: Present: regular rate, normal rhythm, normal heart sounds. Absent: systolic murmur, diastolic murmur, rubs, gallop, clicks Neurological exam: Present: alert, oriented X3, CN II-XII intact Psychiatric exam: Present: normal affect, normal mood Skin exam: Present: warm, dry, intact, normal color. Absent: rash Course Vital Signs 11/09/22 11/09/22 12:24 13:48 Temperature 98.4 F 98.1 F Pulse Rate 72 71 Respiratory 16 16 Rate Blood Pressure 149/93 140/90 O2 Sat by Pulse 95 96 Oximetry Medical Decision Making - Medical Decision Making This is a 27-year-old female who presents to the emergency department for dental pain. Was pt. sent in by a medical professional or institution? @ -No Did you speak to anyone other than the patient for history? @ -No Did you review nursing and triage notes? @ -Yes, and I agree, it is accurate with regards to the patient's symptoms. Were old charts reviewed? @ -No Differential Diagnosis? @ -Differential Dental Pain: Dental abscess, chipped tooth, dental carries, hieu's angina, trigeminal neuralgia, this is not meant to be an all-inclusive list. EKG interpreted by me (3pts min.)? @ -Not obtained X-rays interpreted by me (1pt min.)? @ -Not obtained CT interpreted by me (1pt min.)? @ -Not obtained U/S interpreted by me (1pt. min.)? @ -Not obtained What testing was considered but not performed? (CT, X-rays, U/S, labs)? Why? @ -None What meds were considered but not given? Why? @ -None Did you discuss the management of the patient with other professionals? @ -No Did you reconcile home meds? @ -No Was smoking cessation discussed for >3mins.? @ -No Was critical care preformed (if so, how long)? @ -No Were there social determinants of health that impacted care today? How? (Homelessness, low income, unemployed, alcoholism, drug addiction, transportation, low edu. Level, literacy, decrease access to med. care, halfway, rehab)? @ -No Was there de-escalation of care discussed even if they declined? (Discuss DNR or withdrawal of care, Hospice)? @ -No What co-morbidities impacted this encounter? (DM, HTN, Smoking, COPD, CAD, Cancer, CVA, Hep., AIDS, mental health diagnosis, sleep apnea, morbid obesity)? @ -None Was patient admitted / discharged? @ -Discharged. Symptoms were controlled in the emergency department. Prescription for clindamycin and Toradol provided with dosing instructions reviewed. Patient is instructed to take the Toradol with Tylenol if needed and avoid any other [id number] anti-inflammatories such as ibuprofen with the Toradol. She will otherwise follow up with her dentist for definitive management. Undiagnosed new problem with uncertain prognosis? @ -None Drug Therapy requiring intensive monitoring for toxicity (Heparin, Nitro, Insulin, Cardizem)? @ -None Were any procedures done? @ -None Diagnosis/symptom? @ -Dental infection Acute, or Chronic, or Acute on Chronic? @ -Acute Uncomplicated (without systemic symptoms) or Complicated (systemic symptoms)? @ -Uncomplicated Side effects of treatment? @ -None Exacerbation, Progression, or Severe Exacerbation] @ -Not applicable Poses a threat to life or bodily function? @ -No Return precautions reviewed in depth, the patient is instructed to return to the emergency department with any new, worsening, or concerning symptoms. Patient verbalized understanding. This case was discussed in detail with the attending ED physician, Dr. Sawant. Presentation, findings, and treatment plan discussed in detail as well. Disposition Clinical Impression: Dental abscess Disposition: HOME SELF-CARE Instructions (If sedation given, give patient instructions): Dental Abscess (ED) Additional Instructions: Return to the emergency department with any new, worsening, or concerning symptoms. Take the Augmentin as prescribed for 10 days. Take the Toradol with Tylenol as needed for pain relief. If you choose to take the Toradol, do not take any other [id number]-[id number] anti-inflammatories such as ibuprofen. Take one or the other. Follow up with your primary care provider in 1-2 days. Prescriptions: Clindamycin [Cleocin] 450 mg PO Q8H 10 Days #90 cap Ketorolac [Toradol] 10 mg PO Q6HR PRN #15 tab PRN Reason: Nausea And Vomiting Is patient prescribed a controlled substance at d/c from ED?: No Referrals: None,Stated [Primary Care Provider] - 1-2 days
[2022-11-09 13:50] VITALS: BP 140/90; PULSE 71; TEMP 98.1
== END 2022-11-09 13:50 | disposition home or self-care (01) ==
LOC: EC 12:10
DX: K04.7 Periapical abscess without sinus (principal); F90.9 Attention-deficit hyperactivity disorder, unspecified type; F31.9 Bipolar disorder, unspecified; F17.290 Nicotine dependence, other tobacco product, uncomplicated; F12.90 Cannabis use, unspecified, uncomplicated; Z79.899 Other long term (current) drug therapy; Z88.0 Allergy status to penicillin
CPT/HCPCS: 99282; 96372; J1885

== ENCOUNTER 2022-11-12 00:04 | Emergency (ER) | payer OTHER ==
[2022-11-12 00:11] VITALS: BP 134/88; PULSE 78; RESP 18; TEMP 98.3
[2022-11-12] MEDS ORDERED: HYDROmorphone 0.5 MG/0.5 ML SYRINGE IM STA (00:18)
[2022-11-12] MEDS ORDERED: ACET/COD 300 MG/30 MG STARTER PACK 6 TAB BTL PO STA (00:19)
--- NOTE | 2022-11-12 00:22 | ED ---
ENT HPI - General Chief complaint: Dental/Oral Stated complaint: Tooth Pain Time Seen by Provider: 11/12/22 00:12 Source: patient Mode of arrival: ambulatory Limitations: no limitations - History of Present Illness Initial comments: Patient is a 27-year-old female presents to the emergency department for dental pain. She has pain in her left lower molar she is scheduled to root canal on November 21. She was recently in our emergency department for dental pain and prescribed antibiotics which she states she is taking. She denies fever, chills, nausea, vomiting. - Related Data Home Medications Medication Instructions Recorded Confirmed Acetaminophen Tab [Tylenol Tab] 1,000 mg PO Q6HR PRN 09/28/20 09/28/20 Pantoprazole [Protonix] 40 mg PO DAILY 09/28/20 09/28/20 Previous Rx's Medication Instructions Recorded Ibuprofen [Motrin] 600 mg PO Q6HR PRN #20 tab 09/05/22 Ibuprofen [Motrin] 600 mg PO Q8HR PRN #20 tab 10/04/22 clindamycin HCL 300 mg PO QID #40 cap 10/04/22 Clindamycin [Cleocin] 450 mg PO Q8H 10 Days #90 cap 11/09/22 Ketorolac [Toradol] 10 mg PO Q6HR PRN #15 tab 11/09/22 Ibuprofen [Motrin] 800 mg PO Q6H PRN #30 tab 11/12/22 Allergies Allergy/AdvReac Type Severity Reaction Status Date / Time amoxicillin Allergy Intermediate Rash/Hives Verified 11/12/22 00:09 Review of Systems ROS Statement: Those systems with pertinent positive or pertinent negative responses have been documented in the HPI. ROS Other: All systems not noted in ROS Statement are negative. Past Medical History Past Medical History: No Reported History Additional Past Medical History / Comment(s): stomach ulcer History of Any Multi-Drug Resistant Organisms: None Reported Past Surgical History: Appendectomy Additional Past Surgical History / Comment(s): wisdom tooth removal Past Anesthesia/Blood Transfusion Reactions: No Reported Reaction Past Psychological History: ADD/ADHD, Bipolar, Depression Smoking Status: Current every day smoker, Vaper Past Alcohol Use History: Occasional Past Drug Use History: Marijuana, Prescription Drug Abuse - Past Family History Father Additional Family Medical History / Comment(s): choly General Exam Limitations: no limitations General appearance: alert ENT exam: Present: other (decayed left lower molar no overlying erythema, tenderness. No fluctuance or drainable abscess) Respiratory exam: Present: normal lung sounds bilaterally. Absent: respiratory distress, wheezes, rales, rhonchi, stridor Cardiovascular Exam: Present: regular rate, normal rhythm, normal heart sounds. Absent: systolic murmur, diastolic murmur, rubs, gallop, clicks Neurological exam: Present: alert Skin exam: Present: warm, dry, intact, normal color. Absent: rash Course Vital Signs 11/12/22 00:09 Temperature 98.3 F Pulse Rate 78 Respiratory 18 Rate Blood Pressure 134/88 O2 Sat by Pulse 98 Oximetry Medical Decision Making - Medical Decision Making Was pt. sent in by a medical professional or institution (, [facility], [facility] [employer], urgent care, hospital, or detention...) When possible be specific @ -No Did you speak to anyone other than the patient for history (EMS, parent, family, police, friend...)? What history was obtained from this source @ -No Did you review nursing and triage notes (agree or disagree)? Why? @ -I reviewed and agree with nursing and triage notes Were old charts reviewed (outside hosp., previous admission, EMS record, old EKG, old radiological studies, urgent care reports/EKG's, detention records)? Report findings @ -No old charts were reviewed Differential Diagnosis (chest pain, altered mental status, abdominal pain women, abdominal pain men, vaginal bleeding, weakness, fever, dyspnea, syncope, headache, dizziness, GI bleed, back pain, seizure, CVA, palpatations, mental health)? @ Decayed root, dental infection, dental abscess. this list is not meant to be all-inclusive EKG interpreted by me (3pts min.). @ -As above X-rays interpreted by me (1pt min.). @ -None done CT interpreted by me (1pt min.). @ -None done U/S interpreted by me (1pt. min.). @ -None done What testing was considered but not performed or refused? (CT, X-rays, U/S, labs)? Why? @ -None What meds were considered but not given or refused? Why? @ -None Did you discuss the management of the patient with other professionals (professionals i.e. , [facility], [facility], lab, RT, psych nurse, marriage and family social worker, supervisor livestock yard, teacher, disability liaison officer, director of casework services)? Give summary @ -No Was smoking cessation discussed for >3mins.? @ -No Was critical care preformed (if so, how long)? @ -No Were there social determinants of health that impacted care today? How? (Homelessness, low income, unemployed, alcoholism, drug addiction, transportation, low edu. Level, literacy, decrease access to med. care, [facility], rehab)? @ -No Was there de-escalation of care discussed even if they declined (Discuss DNR or withdrawal of care, Hospice)? DNR status @ -No What co-morbidities impacted this encounter? (DM, HTN, Smoking, COPD, CAD, Can cer, CVA, ARF, Chemo, Hep., AIDS, mental health diagnosis, sleep apnea, morbid obesity)? @ -None Was patient admitted / discharged? Hospital course, mention meds given and route, prescriptions, significant lab abnormalities, going to OR and other pertinent info. @ Discharged with pain medication. No evidence of infection patient currently o n antibiotics. Patient to follow up with dental surgeon Undiagnosed new problem with uncertain prognosis? @ -No] Drug Therapy requiring intensive monitoring for toxicity (Heparin, Nitro, Insulin, Cardizem)? @ -[No] Were any procedures done? @ -[No] Diagnosis/symptom? @ -dental pain Acute, or Chronic, or Acute on Chronic? @ -acute Uncomplicated (without systemic symptoms) or Complicated (systemic symptoms)? @ -uncomplicated Side effects of treatment? @ -[No] Exacerbation, Progression, or Severe Exacerbation? @ -[No] Poses a threat to life or bodily function? How? (Chest pain, [place], [place], pneumonia, PE, COPD, DKA, ARF, appy, cholecystitis, CVA, Diverticulitis, Homicidal, [place] icidal, threat to staff... and all critical care pts) @ -[No] Dr. Hackett is my attending Disposition Clinical Impression: Toothache Disposition: HOME SELF-CARE Condition: Good Instructions (If sedation given, give patient instructions): Dental Abscess (ED), Toothache (ED) Additional Instructions: Continue clindamycin. Alternate Tylenol and Motrin for pain. Save Tylenol 3 for severe pain. Do not take Tylenol and tylenol 3 together. Follow-up with dentist in 1-2 days. Return to emergency department if you experience new, concerning, or worsening symptoms. Prescriptions: Ibuprofen [Motrin] 800 mg PO Q6H PRN #30 tab PRN Reason: Pain Is patient prescribed a controlled substance at d/c from ED?: No Referrals: None,Stated [Primary Care Provider] - 1-2 days
== END 2022-11-12 00:39 | disposition home or self-care (01) ==
LOC: EC 00:04
DX: K08.89 Other specified disorders of teeth and supporting structures (principal); F17.200 Nicotine dependence, unspecified, uncomplicated; F12.90 Cannabis use, unspecified, uncomplicated; Z88.0 Allergy status to penicillin; Z86.59 Personal history of other mental and behavioral disorders
CPT/HCPCS: 99282; 96372; J1170